=== PATIENT | female | born 1955 | race Caucasian/White ===

== ENCOUNTER 2017-10-29 10:30 | Inpatient (IN) | payer OTHER ==
[2017-10-29 12:05] LABS: #Eosinphils 0.1 thou/uL (0.0-0.7); #Lymphocytes 1.4 thou/uL (1.20-3.40); #Monocytes 0.6 thou/uL (0.11-0.59); #Neutrophils 9.7 thou/uL (1.40-6.50); %Basophils 0.2 % (0.0-1.0); %Eosinophils 1.1 % (0.0-10.0); %Lymphocytes 11.5 % (21.0-51.0); %Monocytes 5.3 % (0.0-10.0); %Neutrophils 81.8 % (42.0-75.0); Hemoglobin 11.4 g/dL (12.0-16.0); Mean Corpuscular HGB CONC 33.1 g/dL (32.0-36.0); Mean Corpuscular Hemoglobin 27.5 pg (27.0-31.0); Mean Corpuscular Volume 83.1 fL (78.0-98.0); Mean Platelet Volume 6.6 fL (7.4-10.4); Platelet Count 326 thou/uL (130-400); RBC Distribution Width 14.3 % (11.5-14.5); Red Blood Cell (RBC) Count 4.15 mill/uL (4.20-5.40); White Blood Cell (WBC) Count 11.9 thou/uL (4.8-10.8)
[2017-10-29 12:46] LABS: ALT (SGPT) 17 U/L (8-55); AST (SGOT) 12 U/L (5-34); Albumin 3.9 g/dL (3.4-4.8); Alkaline Phosphatase 93 U/L (40-150); Anion Gap 11 mmol/L (10-20); BUN (Urea Nitrogen) 27 mg/dL (9.8-20.1); Bilirubin, Total 0.6 mg/dL (0.2-1.2); Calc. Creatinine Clearance 0 mL/min (70-130); Calcium 9.4 mg/dL (7.8-10.44); Carbon Dioxide 26 mmol/L (23-31); Chloride 99 mmol/L (98-107); Estimated GFR-MDRD 32; Globulin 4.4 g/dL (2.4-3.5); Glucose 297 mg/dL (80-115); Potassium 4.2 mmol/L (3.5-5.1); Protein, Total 8.3 g/dL (6.0-8.3); Sodium 132 mmol/L (136-145)
--- NOTE | 2017-10-29 12:51 | RAD ---
LEFT FOOT THREE VIEWS: HISTORY: Left foot and toe pain and swelling. FINDINGS: Lisfranc joint alignment is anatomic. Pes planus on the lateral view. No acute fracture, dislocatio n, or aggressive osseous erosions. Mild joint space narrowing, osteophytosis, and subchondral sclero sis throughout the ankle, hindfoot, and midfoot. Demineralization of the mid and distal phalanges of the second toe with loss of the cortex of the dis konstantin phalanx. Atrophy of the overlying soft tissues with small pockets of gas. IMPRESSION: 1. Demineralization and cortical loss of the middle and distal phalanges of the second toe, consiste nt with an aggressive osseous process, such as osteomyelitis. Associated soft tissue swelling. 2. Mild degenerative changes of the mid foot and hind foot. POS: DORA
[2017-10-29] MEDS ORDERED: Sodium Chloride 0.65% Nasal 44 ML BOT EA NARE PRN (14:47)
[2017-10-29] MEDS ORDERED: Acetaminophen 325 MG TAB PO PRN (14:47)
[2017-10-29] MEDS ORDERED: Ondansetron ODT 4 MG TAB PO PRN (14:47)
[2017-10-29] MEDS ORDERED: Diabetic Tussin 200 MG/10 ML UDCUP PO PRN (14:47)
[2017-10-29] MEDS ORDERED: Senokot 8.6 MG TAB PO PRN (14:47)
[2017-10-29] MEDS ORDERED: Dextrose 5% in Water 1,000 ML IV PRN (14:47)
[2017-10-29] MEDS ORDERED: hydrALAZINE 20 MG/ML VIAL SLOW IVP PRN (14:47)
[2017-10-29] MEDS ORDERED: Eucerin (Mineral Oil/Petrolatum,White) 30 gm Jar TOP PRN (14:47)
[2017-10-29] MEDS ORDERED: Chloraseptic Spray 180 ml Bottle PO PRN (14:47)
[2017-10-29] MEDS ORDERED: Milk Of Magnesia 30 ML UDCUP PO PRN (14:47)
[2017-10-29] MEDS ORDERED: Nitroglycerin 0.4 MG TAB (25 Tab Bottle) SL PRN (14:47)
[2017-10-29] MEDS ORDERED: Loperamide HCl 2 MG CAP PO PRN (14:47)
[2017-10-29] MEDS ORDERED: Dextrose 50% Abboject 50 ML SYRINGE SLOW IVP PRN (14:47)
[2017-10-29] MEDS ORDERED: Mag-Al 1200 mg/1200 mg/30 ML UDCUP PO PRN (14:47)
[2017-10-29] MEDS ORDERED: Loratadine 10 MG TAB PO PRN (14:47)
[2017-10-29] MEDS ORDERED: Artificial Tear Sol 15 ML BOT EA EYE PRN (14:47)
[2017-10-29] MEDS ORDERED: Ondansetron HCl/PF 4 MG/2 ML Vial IVP PRN (14:47)
[2017-10-29] MEDS ORDERED: Zolpidem Tartrate 5 MG TAB PO PRN (14:47)
--- NOTE | 2017-10-29 15:13 | HP ---
PRIMARY CARE PHYSICIAN: Mikael Duvall M.D. REASON FOR ADMISSION: Left second toe gangrene and osteomyelitis of the toe. HISTORY OF PRESENT ILLNESS: A 62-year-old female who has underlying history of coronary artery disease, ischemic cardiomyopathy with AICD as well as diabetes, hypertension, and dyslipidemia who presented to emergency room with the discoloration of left 2nd toe. The patient reports that 6 days ago she hit her left foot on the side of the window. Since then, the patient was having pain in her left second toe. The patient noticed erythema, swelling, and tenderness. Amos days ago she fall off her toenail and afterward patient noticed that the tip of the second left toe was getting black which was progressing proximally. The patient also noticed erythema, tenderness spreading proximally on the dorsal aspect of the foot for last 2 days. The patient also noticed foul smelling from the toe. She denies any fever or chills. She denies any associated nausea or vomiting. She denies any claudication symptoms in her lower extremities. She denies any UTI symptoms. She denies any constipation, diarrhea, melena or hematochezia. She denies any orthopnea, PND or leg swelling. Today in the emergency room, patient had left foot x-ray which showed demineralization and cortical loss of the middle and distal phalanges of the second toe consistent with osteomyelitis and that is associated soft tissue swelling. In the emergency room, patient has received broad spectrum antibiotic therapy with vancomycin and Cipro. Subsequently, patient is being admitted to medical floor. Dr. Delgado was notified from the ER by ER physician. ALLERGIES: KEFLEX. CURRENT HOME MEDICATIONS: Lipitor 80 mg p.o. daily, Prinzide 20/25 one tablet twice daily, metformin 1000 mg twice daily, Coreg 25 mg 4 times daily, Lasix 20 mg twice daily, glyburide 10 mg twice daily, hydralazine 50 mg 4 times daily, Levemir insulin variable dose. PAST MEDICAL HISTORY: Coronary artery disease with history of stent, ischemic cardiomyopathy with ejection fraction 25-30% with AICD, chronic systolic heart failure, diabetes type 2, hypertension, dyslipidemia. REVIEW OF SYSTEMS: The following complete review of systems was negative, unless otherwise mentioned in the HPI or below: Constitutional: Weight loss or gain, ability to conduct usual activities. Skin: Rash, itching. Eyes: Double vision, pain. ENT/Mouth: Nose bleeding, neck stiffness, pain, tenderness. Cardiovascular: Palpitations, dyspnea on exertion, orthopnea. Respiratory: Shortness of breath, wheezing, cough, hemoptysis, fever or night sweats. Gastrointestinal: Poor appetite, abdominal pain, heartburn, nausea, vomiting, constipation, or diarrhea. Genitourinary: Urgency, frequency, dysuria, nocturia. Musculoskeletal: Pain, swelling. Neurologic/Psychiatric: Anxiety, depression. Allergy/Immunologic: Skin rash, bleeding tendency. Please see my HPI for pertinent positive and negative. All other review of systems reviewed and negative except as mentioned in the HPI. PAST SURGICAL HISTORY: Cardiac catheterization with stent placement, AICD placement. PAST PSYCHIATRIC HISTORY: Reviewed and negative. FAMILY HISTORY: No strong family history of premature coronary artery disease, stroke or cancer. SOCIAL HISTORY: Patient is and lives at home with her . No history of tobacco, alcohol or illicit drug abuse. EMERGENCY ROOM COURSE: Patient has received Cipro and vancomycin. PHYSICAL EXAMINATION: VITAL SIGNS: On arrival, blood pressure 145/67, pulse 77, respiratory rate 18, temperature 98.2, saturation 98% on room air, weight 104.3 kilograms. GENERAL: Patient is currently alert, awake, no obvious acute distress. HEENT: Normocephalic, atraumatic. Eyes: Pupils round, reactive to light. Extraocular muscle intact. ENT: Oropharynx within normal limits. Moist mucous membranes. No oral lesion , no pharyngeal erythema, no exudate. NECK: Supple, no JVD, no thyromegaly, no carotid bruit, no jugular venous distention. LUNGS: Clear to auscultation without any rhonchi or rales. CARDIAC: S1, S2 appears regular. No murmur elicited, no gallop, no rub. ABDOMEN: Obesity present. Bowel sounds present, nontender, nondistended. No organomegaly, no mass, no suprapubic tenderness. BACK: Unremarkable, no CVA tenderness. EXTREMITIES: Upper extremity passive movements of all joints are normal. Lower extremity, left second toe with black discoloration of proximal erythema extending to dorsal aspect of the foot, foul smelling feeble pulsation. Right foot is within normal limits. SKIN: No skin rash other than gangrenous toe on the left second toe. NEUROLOGIC: Nonfocal examination. The patient moves all 4 limbs. Plantar bilateral flexor. PSYCHIATRIC: Normal affect. HEMATOLOGIC: No lymphadenopathy. IMAGING DATA SIGNIFICANT LABORATORY DATA: 1. X-ray of foot showing demineralization and cortical loss of the middle and distal phalanges of the second toe on the left side consistent with aggressive osseous process such as osteomyelitis associated soft tissue swelling noted. Degenerative changes also noted. CBC: WBC 11.9, hemoglobin 11.4, platelet 326 with a left shift. BMP: Sodium 132, potassium 4.2, chloride 99, carbon dioxide 26, anion gap 11, BUN 27, creatinine 1.63, glucose 297, calcium 9.4. 2. LFT: AST 12, ALT 17, alkaline phosphatase 193, albumin 3.9. ASSESSMENT AND PLAN/IMPRESSION: 1. Acute osteomyelitis of second toe of the left foot with gangrene. Patient clinically appears to be dry gangrene suspected for vascular problem. Patient does have various risk factors for underlying vascular insufficiency including diabetes, hypertension, dyslipidemia, and coronary artery disease. The patient may need ischemic evaluation. We will obtain arterial Doppler ultrasound of left lower extremity to look for any vascular insufficiency. We are consulting Dr. Delgado for possible need of toe amputation after a vascular evaluation. This patient may need a CT angiography to look for peripheral arterial disease before surgery to see an appropriate circulation after amputation. II that case , the patient may need a vascular surgeon evaluation. We will notify Dr. Ronald Johns. Dr. Whitaker will be consulted as well to decide antibiotic therapy. We will check ESR and CRP. 2. Diabetes type 2. We will check hemoglobin A1c. We will continue insulin as per sliding scale per protocol. The patient's insulin will be continued while in hospital. Diabetic diet will be given. We will also continue glyburide 10 mg twice daily. 3. Dyslipidemia. Continue Lipitor 80 mg p.o. at bedtime. 4. Hypertension. Continue Prinzide 20/25 as per home dosage along with Coreg and hydralazine. 5. Ischemic cardiomyopathy with chronic systolic heart failure. Currently, patient is euvolemic. We will continue Prinzide, Coreg, hydralazine and Lasix as per home dosage. 6. Coronary artery disease. We will continue aspirin, statin therapy, beta juan diego therapy, and JAMI inhibitor as per home dosage. 7. Chronic kidney disease stage 3. We will monitor renal function and avoid nephrotoxin agents. 8. Deep venous thrombosis prophylaxis, heparin 5000 units subcu twice daily. 9. Gastrointestinal prophylaxis, Protonix 40 mg p.o. daily. CODE STATUS: The patient is FULL CODE. Patient's is surrogate decision maker. DISPOSITION PLAN: Based on clinical course, we are expecting patient's stay in hospital more than 2 midnights. During this admission, we will continue with antibiotic therapy with vancomycin and levofloxacin as per renally adjusted dose. Vancomycin dose will be adjusted by pharmacy. Plan of care discussed with the patient in detail. MTDD
[2017-10-29 15:14] VITALS: BMI 38.5
[2017-10-29] MEDS ORDERED: Vancomycin HCl 1 GM in Premix Bag 1 BAG IVPB SCH (15:45)
[2017-10-29] MEDS: HumaLOG 300 UNITS/3 ML VIAL SC PRN ×2 (17:19→21:12)
[2017-10-29 19:13] LABS: Bilirubin Negative (Negative); Blood, Urine Negative (Negative); Clarity CLOUDY (Clear); Glucose, Urine (Dipstick) Negative (Negative); Leukocyte Large (Negative); Nitrite Negative (Negative); Protein, Urine (Dipstick) 30 mg/dL (Neg-Trace); Specific Gravity, Urine 1.016 (1.002-1.036); Urobilinogen 0.2 mg/dL (0.2-1.0); pH, Urine 5.5 (5.0-9.0)
[2017-10-29 19:15] LABS: Bacteria/HPF 1+ HPF (None Seen); Hyaline Casts/LPF 4-6 HYALINE CAST LPF (0-3 Hyaline); Pathc Cast-AUWi Flag 0.43 (0-2.49)
[2017-10-29] MEDS: Heparin 5,000 UNITS/ML VIAL SC SCH (19:41)
--- NOTE | 2017-10-29 23:11 | CON ---
DATE OF ADMISSION: 10/29/2017 DATE OF CONSULTATION: 10/29/2017 REASON FOR CONSULTATION: Evaluate the patient with left second toe gangrene. HISTORY OF PRESENT ILLNESS: Ms. Johns has approximately 1 week history of left second toe gangrene. She presented to the emergency department today. She has no tobacco use history. She does have a c ardiac history and that she has had a myocardial infarction and has been seen by Dr. Sheridan since. She has low ejection fraction and has an ICD placed. She has never had any peripheral vascular prob lems. She has no history of claudication or rest pain. She has no history of tissue loss in the pas t. PAST MEDICAL HISTORY: 1. Coronary artery disease. 2. Depressed left ventricular ejection fraction. 3. Congestive heart failure. 4. Diabetes mellitus. 5. Hypertension. 6. Dyslipidemia. PAST SURGICAL HISTORY: 1. Cardiac catheterization and stenting. 2. AICD. SOCIAL HISTORY: She does not use tobacco or alcohol. She is and lives at home. REVIEW OF SYSTEMS: Ten-point review of systems performed and is negative except as above. PHYSICAL EXAMINATION: GENERAL: This is an obese woman resting comfortably in bed. VITAL SIGNS: Her height is 5 feet 10 inches, weight 268 pounds, BSA is 2.45. BMI is 38. Temperatur e is 98.1, pulse is 78 and regular, blood pressure is 148/82. HEENT: Sclerae nonicteric. NECK: Supple, without adenopathy. There is no carotid bruit. CHEST: Clear bilaterally. HEART: Rhythm is regular without murmur. ABDOMEN: Soft and nontender. EXTREMITIES: She has gangrene dry at tip of the second toe. There is some erythema of the second to e that extends down onto the forefoot, other toes appeared normal. VASCULAR: She has palpable femoral pulses bilaterally. On the right, she has a palpable dorsalis pe dis pulse on the left. I think I can feel her posterior tibial pulse and it does have a biphasic Dop pler signal in it. She has had formal arterial Doppler examination performed which shows on the righ t good waveforms throughout and an ankle brachial index of 1.05 on the left. There is a slight decre ase in the popliteal artery waveform, posterior tibial artery waveform is biphasic. The ankle brachi al index is 0.61. ASSESSMENT AND PLAN: Peripheral vascular disease in the setting of gangrene of the second toe. She does have a Doppler signal in her left posterior tibial artery and also in the digital artery supplyi ng her second toe. She needs amputation of the toe. If the toe bed does not bleed, we can certainly plan angiograms intervention, although I feel like she should heal based on her exam currently.
--- NOTE | 2017-10-30 01:51 | CON ---
DATE OF CONSULTATION: 10/29/2017 REASON FOR CONSULTATION: Osteomyelitis of the left second toe. HISTORY: Ms. Johns is a 62-year-old woman with multiple medical problems, who presented to the [facility] with a several day history of discoloration of her left second toe after hitting it on a door jam . She states that the color has gotten darker and the toe has gotten more swollen over the past few days, so she decided to come into the emergency room. On x-ray, there was loss of cortical bone of t he distal and middle phalanx bones consistent with osteomyelitis and also some soft tissue swelling n oted. She denies any drainage from the toe and she denies rest pain and claudication. PAST MEDICAL HISTORY: Diabetes, coronary artery disease status post stent placements, heart failure with AICD placement, diabetes, hypertension, hyperlipidemia. OUTPATIENT MEDICATIONS: Include Lipitor, Prinzide, metformin, Coreg, Lasix, glyburide, hydralazine, and Levemir insulin. ALLERGIES: She reports an allergy to KEFLEX. INPATIENT MEDICATIONS: Include sliding scale insulin, subcutaneous heparin, levofloxacin, Florastor, vancomycin, and multiple p.r.n.'s. FAMILY HISTORY: Noncontributory. PHYSICAL EXAMINATION: VITAL SIGNS: Patient is afebrile, heart rate 64, respirations 16, 93% saturated on room air, blood p ressure 138/77. GENERAL: Reveals a healthy appearing woman who appears older than her stated age. HEENT: Unremarkable. NECK: Supple without lymphadenopathy or thyroid nodules. HEART: Regular in its rate and rhythm without murmurs, rubs, or gallops. LUNGS: Clear to auscultation bilaterally. ABDOMEN: Soft, nontender, nondistended with a large umbilical hernia, which is not reducible, but is nontender and has been present for 20 years by the patient's history that appears to contain fat onl y. EXTREMITIES: Somewhat pale with delayed cap refill on the left greater than the right. I can apprec iate a dorsalis pedis pulse on the right as well as a popliteal but cannot feel any pedal or poplitea l pulses on the left. Her left second toe is gangrenous over about half of the total length. There is erythema and swelling of the proximal toe and the erythema extends up onto the mid foot. There is also some pitting edema of the foot associated with this. There is no crepitance and no expressible drainage, although the skin between the toes is somewhat macerated. Light touch sensation is somewh at diminished. Patient is alert, oriented, and appropriate and given an appropriate history. LABORATORY DATA AND X-RAY FINDINGS: White count 11.9, hematocrit 34.5, platelets 326. Electrolytes are unremarkable. BUN and creatinine are 27 and 1.63. Blood sugars have been in the 240s to 290s. LFTs are normal. UA is positive for leukocyte esterase and protein as well as too numerous to count white cells, 1+ bacteria, and 4-6 hyaline casts. Foot films are reviewed and I agreed with written r eport. ASSESSMENT: Gangrene of the left second toe due to peripheral vascular disease and minor trauma. I am concerned that there could be some infections since there appears to be erythema extending onto th e mid foot, but there is no expressible drainage from the toe, so I do not think this is classic wet gangrene. I was not sure whether she would be able to heal and amputation, so I did ask Dr. Johns of vascular surgery to evaluate her and he feels that she has adequate blood flow to heal an amputation at the toe level. If the tissues do not appear healthy or healing does not appear to be taking plac e, then he will perform an angiogram next week to see if any intervention is possible or appropriate. ASSESSMENT: Gangrene of left second toe with concern for indolent infection. PLAN: I have recommended amputation. Dr. Johns of vascular surgery feels that she has adequate bloo d supply to heal this and I have placed her on the OR scheduled for tomorrow. The patient is in agre ement with the plan and understands and accepts the risks of surgery, which include bleeding, infecti on, risks of anesthesia, failure to heal, and need for further procedures. She understands that if s he does not heal a toe amputation and amputation at a higher level up to including losing the entire foot is possible. She may benefit from hyperbaric treatment, although given her heart failure, I am not sure she is a candidate. I will ask the [facility] to evaluate her for this.
[2017-10-30 04:43] LABS: #Eosinphils 0.3 thou/uL (0.0-0.7); #Lymphocytes 1.9 thou/uL (1.20-3.40); #Monocytes 0.8 thou/uL (0.11-0.59); #Neutrophils 6.6 thou/uL (1.40-6.50); %Basophils 0.3 % (0.0-1.0); %Eosinophils 2.9 % (0.0-10.0); %Neutrophils 68.8 % (42.0-75.0); Hemoglobin 10.3 g/dL (12.0-16.0); Mean Corpuscular HGB CONC 33.6 g/dL (32.0-36.0); Mean Corpuscular Hemoglobin 27.7 pg (27.0-31.0); Mean Corpuscular Volume 82.3 fL (78.0-98.0); Mean Platelet Volume 6.4 fL (7.4-10.4); Platelet Count 307 thou/uL (130-400); RBC Distribution Width 14.1 % (11.5-14.5); Red Blood Cell (RBC) Count 3.72 mill/uL (4.20-5.40); White Blood Cell (WBC) Count 9.6 thou/uL (4.8-10.8)
[2017-10-30 05:04] LABS: ALT (SGPT) 16 U/L (8-55); AST (SGOT) 13 U/L (5-34); Albumin 3.3 g/dL (3.4-4.8); Alkaline Phosphatase 87 U/L (40-150); Anion Gap 10 mmol/L (10-20); BUN (Urea Nitrogen) 28 mg/dL (9.8-20.1); Bilirubin, Total 0.6 mg/dL (0.2-1.2); Calc. Creatinine Clearance 71 mL/min (70-130); Calcium 8.9 mg/dL (7.8-10.44); Carbon Dioxide 29 mmol/L (23-31); Chloride 100 mmol/L (98-107); Estimated GFR-MDRD 33; Globulin 3.7 g/dL (2.4-3.5); Glucose 218 mg/dL (80-115); Potassium 4.1 mmol/L (3.5-5.1); Sodium 135 mmol/L (136-145)
[2017-10-30] MEDS ORDERED: Fentanyl 100 MCG/2 ML VIAL ONE (09:50)
[2017-10-30] MEDS ORDERED: Bacitracin Zinc Ointment 30 gm TUBE ONE (10:09)
[2017-10-30] MEDS ORDERED: Bupivacaine/Epinephrine 0.25% 30 ML VIAL ONE (10:09)
[2017-10-30] MEDS ORDERED: Promethazine HCl 25 MG/ML VIAL SLOW IVP PRN (10:30)
[2017-10-30] MEDS ORDERED: HYDROmorphone 2 MG/ML VIAL SLOW IVP PRN (10:30)
[2017-10-30] MEDS ORDERED: Promethazine HCl 25 MG/ML VIAL IM PRN (10:30)
[2017-10-30] MEDS ORDERED: Meperidine HCl/PF 25 MG/ML VIAL SLOW IVP PRN (10:30)
[2017-10-30] MEDS: Heparin 5,000 UNITS/ML VIAL SC SCH ×2 (12:20→20:05)
[2017-10-30] MEDS: Saccharomyces boulardii 250 MG CAP PO SCH (12:20)
[2017-10-30] MEDS: HumaLOG 300 UNITS/3 ML VIAL SC PRN ×3 (12:21→20:10)
--- NOTE | 2017-10-30 12:25 | PQF ---
KALI BULLOCK DAVID R MD [id number] CLINICAL DOCUMENTATION IMPROVEMENT CLARIFICATION FORM: ICD-10 Updated PLEASE DO AN ADDENDUM TO THE PROGRESS NOTE WITH ANY DOCUMENTATION UPDATES OR ADDITIONS AND CARRY THROUGH TO DC SUMMARY. THANK YOU. DATE: 10-30-17 ATTN: DR. ENRIQUEZ / DR. CASTLE Please exercise your independent, professional judgment in responding to the clarification form. Clinical indicators are provided on the bottom of this form for your review Please check appropriate box(s): [ ] UTI UTI Site: [ ] Kidney [ ] Ureter [ ] Bladder [ ] Urethra [ ] Unable to determine Specify Organism (if known): [ ] Unknown organism [ x ] Contaminated urine specimen without UTI culture negative [ ] Other diagnosis [ ] Unable to determine In addition, please specify: Present on Admission (POA): [ ] Yes [ x ] No [ ] Unable to determine For continuity of documentation, please document condition throughout progress notes and discharge summary. Thank You. CLINICAL INDICATORS - SIGNS / SYMPTOMS / LABS 8-16 UA - LARGE LEUKOCYTES WBC - GREATER THAN 50 1+ BACTERIA 4-6 HYALINE CASTS 8-16 H&P ([facility]): DENIES UTI SYMPTOMS RISK FACTORS 8-16 H&P ([facility]): DM TYPE 2 TREATMENT: 8-16 ED: CIPRO IV; VANCOMYCIN IV; MAR: 8-16 LEVAQUIN IV THANK YOU, PALOMA 2015 [employer]. All Rights Reserved Paloma Baum RN, BS [email or web address] This form is maintained as a part of the permanent medical record) [facility]
[2017-10-30] MEDS: cefTRIAXone\\ROCEPHIN 1 GM in Sodium Chloride 0.9% 100 ML IVPB SCH (14:38)
--- NOTE | 2017-10-30 14:41 | CON ---
DATE OF CONSULTATION: 10/30/2017 REASON FOR CONSULTATION: Left foot osteomyelitis. HISTORY OF PRESENT ILLNESS: This is a 62-year-old with history of ischemic cardiomyopathy with AICD in place, type 2 diabetes and hypertension who developed discoloration of the left second toe associa howard with inflammatory changes with erythema that is spreading towards the dorsal aspect of the left m id foot region. Initial findings included blood pressure 145/67, pulse 77, respiratory rate 18, temp erature 98.2. The exam showed left second toe with evidence of gangrene with extension of the inflam matory changes towards the mid aspect of the left foot. She had an arterial ultrasound. That interp retation is pending. Dr. Johns cleared her for surgical intervention. Dr. Delgado has performed amp utation. 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 The patient is feeling otherwise okay. She denies any headaches, visual symptoms other th an the usual diabetes related symptoms. No neck pain, no dyspnea, no chest pain, no abdominal pain, no diarrhea, no genitourinary symptoms. No joint symptoms. PAST MEDICAL HISTORY: Ischemic cardiomyopathy, diabetes, hypertension, peripheral vascular disease. ALLERGIES: KEFLEX with rash. CURRENT MEDICATIONS: Tylenol, [place], Maalox, glucagon, Robitussin, Apresoline, insulin, levofloxacin , loperamide, Claritin, Nitrostat, Zofran, vancomycin. FAMILY HISTORY: Noncontributory. SOCIAL HISTORY: Never a smoker. . Lives at home in the area. PHYSICAL EXAMINATION: VITAL SIGNS: T-max 98.7, blood pressure 160/70, pulse 62, respirations 16, O2 sat 95%. SKIN: Shows the gangrene of the second toe, left foot. There is an area of erythema in the dorsal a spect of the mid foot region, measuring about 6 cm in width x 5 cm in extension. Peripheral IV acces s. No Bella catheter. No lymphadenopathy. HEENT: Ocular movements are conjugate. Sclerae white. Pupils are equal. Oral cavity normal. Teet h in good shape. NECK: Supple. No jugular vein distention. LUNGS: With symmetric clear breath sounds. HEART: S1, S2, regular rate. No S3, S4. ABDOMEN: Soft, not distended or tender. No ascites. No bladder distention. EXTREMITIES: No joint inflammatory activity outside the involved area. Pulses are diminished in augustin salis pedis, left side. The right side are 1+. Popliteals are faintly palpable in the left side and 1+ in the right side. NEUROLOGIC: Cognitive function appears to be intact. The strength in the extremities appears to be symmetric. LABORATORY DATA: White cell count 11.9 and 9.6, hemoglobin 11.4, platelets 326,000, 81% neutrophils. Sodium 135, creatinine is at 1.61, which is about the same as admission. Liver profile normal. CR P 3.99, albumin 3.3. Urinalysis with greater than 50 WBCs. We have 2 samples for cultures from the toe. A few gram-positive cocci in pairs noted in the first sample. The second sample and the Gram s tain with no organisms seen. All the cultures are pending. Blood culture, no growth thus far. ASSESSMENT AND PLAN: Type 2 diabetes with ischemic cardiomyopathy and AICD in place with gangrene, s econd toe left foot and extension of the cellulitis proximally. The patient has had amputation. I es ford not yet had the chance of reviewing the operative report, but depending on the margin of clearanc e as well as the culture results, the patient may be eligible for transition to oral antimicrobial th erapy subsequently for discharge planning. In the meantime, continue broad spectrum coverage with th e current regimen. We will transition her to Rocephin and Flagyl until we have final culture results .
[2017-10-30] MEDS ORDERED: PHENYLEPHRINE-NS 100 MCG/ML 10 ML SYRINGE ONE (15:09)
[2017-10-30] MEDS ORDERED: PROPOFOL 200 MG/20 ML VIAL ONE (15:09)
[2017-10-30] MEDS ORDERED: Lidocaine 1% PF 5 ML VIAL ONE (15:09)
[2017-10-30] MEDS: metroNIDAZOLE 250 MG TAB PO SCH ×2 (16:00→20:05)
--- NOTE | 2017-10-30 22:46 | PDOC.PN ---
- Subjective Encounter Start Date: 10/30/17 Encounter Start Time: 15:15 Doing well post op. No pain. - Objective Resuscitation Status: Resuscitation Status FULL:Full Resuscitation Vital Signs & Weight: Vital Signs (12 hours) Temp Pulse Resp BP Pulse Ox 10/30/17 20:00 98.6 F 67 12 144/72 H 94 L 10/30/17 16:00 98.3 F 66 16 155/83 H 92 L 10/30/17 12:00 140/82 10/30/17 11:15 98.1 F 62 16 165/75 H 95 Weight Admit Weight 268 lb 8 oz Weight 268 lb 8 oz I&O: 10/29/17 10/30/17 10/31/17 06:59 06:59 06:59 Intake Total 1450 Balance 1450 Result Diagrams: 10/30/17 03:51 10/30/17 03:51 Additional Labs: Accuchecks 10/30/17 10/30/17 10/30/17 20:09 16:49 11:35 POC Glucose 267 H 289 H 284 H 10/30/17 04:35 POC Glucose 197 H Phys Exam - Physical Examination Constitutional: NAD HEENT: PERRLA Respiratory: no wheezing, no rales, no rhonchi Cardiovascular: RRR, no significant murmur Gastrointestinal: soft, non-tender, no distention Musculoskeletal: no edema Left foot dressed. Dx/Plan (1) Osteomyelitis Code(s): M86.9 - OSTEOMYELITIS, UNSPECIFIED Status: Acute Comment: S/P amputation. Some proximal progression of abscess with debridement of the head of the metatarsal bone. Continue with Abx. Cx growing Staph. Await sensitivities. (2) Diabetes Code(s): E11.9 - TYPE 2 DIABETES MELLITUS WITHOUT COMPLICATIONS Status: Acute Qualifiers: Chronic kidney disease stage: stage 3 (moderate) Comment: Poorly controlled. Will resume her home regimen of long-acting insulin. (3) Hypertension Code(s): I10 - ESSENTIAL (PRIMARY) HYPERTENSION Status: Acute Comment: Stable. Home Zestril. (4) CKD (chronic kidney disease) Code(s): N18.9 - CHRONIC KIDNEY DISEASE, UNSPECIFIED Status: Acute Qualifiers: Chronic kidney disease stage: stage 3 (moderate) Qualified Code(s): N18.3 - Chronic kidney disease, stage 3 (moderate) (5) CAD (coronary artery disease) Code(s): I25.10 - ATHSCL HEART DISEASE OF [place] CORONARY ARTERY W/O ANG PCTRS Status: Acute - Plan * Continue post op care. Accuchecks and DM control.
--- NOTE | 2017-10-31 00:41 | PDOC.OP ---
Operative Note - Operative Note Operative Note: PROCEDURE: Left second toe ray amputation DATE OF PROCEDURE: 10/30/2017 SURGEON: Edgar Delgado M.D. PREOPERATIVE DIAGNOSES: Gangrene of the left second toe with diabetic foot infection POSTOPERATIVE DIAGNOSIS: Gangrene of the left second toe with diabetic foot infection HISTORY: Patient with discoloration and swelling of the left second toe after minor injury. She has obvious gangrene of the distal left second toe and cortical changes consistent with osteomyelitis of the mid and distal phalanges. She also has swelling and erythema extending onto the dorsum of the foot concerning for underlying infection although there is no expressible drainage from the toe. Dr. Johns of vascular surgery feels that she has adequate circulation to heal a toe amputation so recommendation was made to proceed to the operating room for this. PROCEDURE IN DETAIL: After informed consent was obtained and appropriate preoperative antibiotics continued the patient was taken to the operating room she was placed in supine position and anesthesia was administered. She was prepped and draped in a standard sterile fashion and local anesthesia infused for digital block of the left second toe. A paddle-shaped incision was made and dissection carried down to the proximal phalanx which was transected. There was a small amount of purulent fluid located along the medial aspect of the toe at the level of transection and this was sent for Gram stain and culture. The soft tissues were debrided back to healthy-appearing tissues and no other areas of abscess were encountered. The bone at the transection level appeared to be spongy and osteomyelitic so the base of the proximal phalanx was resected and the head of the second metatarsal debrided back with rongeurs. The second metatarsal bone was normal in consistency and bone chips were sent for culture. Bovie electrocautery was used as needed throughout the case to maintain hemostasis, but there was not much bleeding from the tissues. These appeared viable but somewhat pale. The wound was irrigated and hemostasis verified. A wet-to-dry dressing was placed and secured with Kerlix and the patient was taken to the recovery room in good condition. Estimated blood loss is minimal. There were no complications. Specimen is left second toe with abscess for Gram stain and culture and bone chips from the second metatarsal head for bone culture.
[2017-10-31] MEDS: HumaLOG 300 UNITS/3 ML VIAL SC PRN ×3 (04:00→18:05)
[2017-10-31] MEDS: Saccharomyces boulardii 250 MG CAP PO SCH (09:25)
[2017-10-31] MEDS: metroNIDAZOLE 250 MG TAB PO SCH ×3 (09:25→20:22)
[2017-10-31] MEDS: Heparin 5,000 UNITS/ML VIAL SC SCH ×2 (09:26→20:24)
[2017-10-31 12:32] LABS: Vancomycin, Trough 14.5 ug/mL
[2017-10-31] MEDS: hydrALAZINE 25 MG TAB PO SCH ×2 (14:48→20:23)
--- NOTE | 2017-10-31 14:58 | PDOC.PN ---
- Subjective Encounter Start Date: 10/31/17 Encounter Start Time: 12:45 Doing well. No pain. - Objective Resuscitation Status: Resuscitation Status FULL:Full Resuscitation Vital Signs & Weight: Vital Signs (12 hours) Temp Pulse Resp BP BP Pulse Ox 10/31/17 14:48 70 135/77 10/31/17 14:46 98.0 F 70 16 135/77 96 10/31/17 08:00 96 10/31/17 07:58 98.3 F 70 16 96 10/31/17 07:57 98.3 F 70 16 127/70 93 L 10/31/17 04:00 99.3 F 70 14 123/68 Weight Admit Weight 268 lb 8 oz Weight 268 lb 8 oz I&O: 10/30/17 10/31/17 11/01/17 06:59 06:59 06:59 Intake Total 1450 Balance 1450 Result Diagrams: 10/30/17 03:51 10/30/17 03:51 Additional Labs: Accuchecks 10/31/17 10/31/17 10/30/17 11:36 03:47 20:09 POC Glucose 374 H 255 H 267 H 10/30/17 16:49 POC Glucose 289 H Phys Exam - Physical Examination Constitutional: NAD Respiratory: no wheezing, no rales, no rhonchi, clear to auscultation bilateral Cardiovascular: RRR, no significant murmur, no rub Gastrointestinal: soft, non-tender, no distention, positive bowel sounds Musculoskeletal: no edema Left foot with post-op dressing. Psychiatric: normal affect Dx/Plan (1) Osteomyelitis Code(s): M86.9 - OSTEOMYELITIS, UNSPECIFIED Status: Acute Comment: S/P amputation. Some proximal progression of abscess with debridement of the head of the metatarsal bone. Continue with Abx. Cx growing Staph. Await sensitivities. (2) Diabetes Code(s): E11.9 - TYPE 2 DIABETES MELLITUS WITHOUT COMPLICATIONS Status: Acute Qualifiers: Chronic kidney disease stage: stage 3 (moderate) Comment: Poorly controlled. Will resume her home regimen of long-acting insulin. (3) Hypertension Code(s): I10 - ESSENTIAL (PRIMARY) HYPERTENSION Status: Acute Comment: Stable. Home Zestril. (4) CKD (chronic kidney disease) Code(s): N18.9 - CHRONIC KIDNEY DISEASE, UNSPECIFIED Status: Acute Qualifiers: Chronic kidney disease stage: stage 3 (moderate) Qualified Code(s): N18.3 - Chronic kidney disease, stage 3 (moderate) (5) CAD (coronary artery disease) Code(s): I25.10 - ATHSCL HEART DISEASE OF [place] CORONARY ARTERY W/O ANG PCTRS Status: Acute - Plan * Tailor abx when cultures mature.
[2017-10-31] MEDS: cefTRIAXone\\ROCEPHIN 1 GM in Sodium Chloride 0.9% 100 ML IVPB SCH (16:40)
[2017-10-31] MEDS: Lisinopril 20 MG TAB PO SCH (20:21)
[2017-10-31] MEDS: Atorvastatin Calcium 40 MG TAB PO SCH (20:23)
[2017-10-31] MEDS: Furosemide 20 MG TAB PO SCH (20:24)
[2017-10-31] MEDS: NPH, Human Insulin Isophane 300 UNIT/3 ML VIAL SC SCH (20:25)
[2017-10-31] MEDS ORDERED: Non-Formulary Item 1 EACH (Lisinopril [Lisinopril] 40 MG) PO SCH (21:00)
--- NOTE | 2017-10-31 23:08 | PDOC.GSPN ---
Surgery Progress Note: Subj - Subjective Narrative: Amputation site clean, erythema a little better. Not hurting much. Continue wound care and abx. Surgery Progress Note: Obj - Vital signs Vital signs: Vital Signs - Most Recent Temp Pulse Resp BP Pulse Ox 98 F 74 18 152/84 H 92 L 10/31/17 20:00 10/31/17 20:00 10/31/17 20:00 10/31/17 20:23 10/31/17 20:00 Surgery Progress Note: Results - Labs Result Diagrams: 10/30/17 03:51 10/30/17 03:51 Lab results: Laboratory Results - last 24 hr 10/31/17 10/31/17 10/31/17 11:36 12:00 17:04 POC Glucose 374 H 289 H Vancomycin Trough 14.5 10/31/17 19:38 POC Glucose 386 H Vancomycin Trough
[2017-11-01 04:53] LABS: #Eosinphils 0.6 thou/uL (0.0-0.7); #Lymphocytes 2.2 thou/uL (1.20-3.40); #Monocytes 0.7 thou/uL (0.11-0.59); #Neutrophils 4.4 thou/uL (1.40-6.50); %Eosinophils 7.9 % (0.0-10.0); %Lymphocytes 28.5 % (21.0-51.0); %Monocytes 8.3 % (0.0-10.0); %Neutrophils 55.3 % (42.0-75.0); Hemoglobin 9.9 g/dL (12.0-16.0); Mean Corpuscular HGB CONC 32.9 g/dL (32.0-36.0); Mean Corpuscular Hemoglobin 27.3 pg (27.0-31.0); Mean Platelet Volume 6.4 fL (7.4-10.4); Platelet Count 291 thou/uL (130-400); RBC Distribution Width 14.2 % (11.5-14.5); Red Blood Cell (RBC) Count 3.63 mill/uL (4.20-5.40); White Blood Cell (WBC) Count 7.9 thou/uL (4.8-10.8)
[2017-11-01 05:17] LABS: Anion Gap 13 mmol/L (10-20); BUN (Urea Nitrogen) 35 mg/dL (9.8-20.1); Calc. Creatinine Clearance 87 mL/min (70-130); Calcium 9.2 mg/dL (7.8-10.44); Carbon Dioxide 28 mmol/L (23-31); Chloride 100 mmol/L (98-107); Estimated GFR-MDRD 41; Glucose 241 mg/dL (80-115); Potassium 4.2 mmol/L (3.5-5.1); Sodium 137 mmol/L (136-145)
[2017-11-01] MEDS ORDERED: Non-Formulary Item 1 EACH (Atorvastatin Calcium [Atorvastatin Calcium] 80 MG) PO SCH (09:00)
[2017-11-01] MEDS: Ezetimibe 10 MG TAB PO SCH (09:04)
[2017-11-01] MEDS: Amlodipine 5 MG TAB PO SCH (09:04)
[2017-11-01] MEDS: Saccharomyces boulardii 250 MG CAP PO SCH (09:04)
[2017-11-01] MEDS: Lisinopril 20 MG TAB PO SCH ×2 (09:04→20:50)
[2017-11-01] MEDS: Heparin 5,000 UNITS/ML VIAL SC SCH ×2 (09:05→20:52)
[2017-11-01] MEDS: metroNIDAZOLE 250 MG TAB PO SCH ×3 (09:06→20:50)
[2017-11-01] MEDS: hydrALAZINE 25 MG TAB PO SCH ×3 (09:06→20:51)
[2017-11-01] MEDS: Furosemide 20 MG TAB PO SCH ×2 (09:07→20:51)
[2017-11-01] MEDS: NPH, Human Insulin Isophane 300 UNIT/3 ML VIAL SC SCH ×2 (09:48→20:54)
[2017-11-01] MEDS: HYDROcodone/Acetaminophen 5/325 mg Tablet PO PRN (11:51)
[2017-11-01] MEDS: HumaLOG 300 UNITS/3 ML VIAL SC PRN (12:58)
--- NOTE | 2017-11-01 13:09 | PDOC.PN ---
- Subjective Encounter Start Date: 11/01/17 Encounter Start Time: 11:20 Doing well. No sidhu to get home. Would like some pain meds prior to the dressing changes. - Objective Resuscitation Status: Resuscitation Status FULL:Full Resuscitation Vital Signs & Weight: Vital Signs (12 hours) Temp Pulse Resp BP BP Pulse Ox 11/01/17 11:49 98.4 F 69 18 142/79 H 94 L 11/01/17 09:06 68 154/83 H 11/01/17 09:04 68 154/83 H 11/01/17 08:00 97.9 F 68 18 93 L 11/01/17 07:29 97.9 F 68 18 154/83 H 93 L Weight Admit Weight 268 lb 8 oz Weight 268 lb 8 oz I&O: 10/31/17 11/01/17 11/02/17 06:59 06:59 06:59 Intake Total 1450 2420 Balance 1450 2420 Result Diagrams: 11/01/17 03:46 11/01/17 03:46 Additional Labs: Accuchecks 11/01/17 11/01/17 10/31/17 11:48 05:49 19:38 POC Glucose 292 H 228 H 386 H 10/31/17 17:04 POC Glucose 289 H Phys Exam - Physical Examination Constitutional: NAD Respiratory: no wheezing, no rales, no rhonchi, clear to auscultation bilateral Cardiovascular: RRR, no significant murmur Gastrointestinal: soft, non-tender, no distention, positive bowel sounds Musculoskeletal: no edema Left foot dressed. No erythema of the leg and good cap refill toes Dx/Plan (1) Osteomyelitis Code(s): M86.9 - OSTEOMYELITIS, UNSPECIFIED Status: Acute Comment: S/P amputation. Some proximal progression of abscess with debridement of the head of the metatarsal bone. Continue with Abx. Cx growing Staph. Await sensitivities. (2) Diabetes Code(s): E11.9 - TYPE 2 DIABETES MELLITUS WITHOUT COMPLICATIONS Status: Acute Qualifiers: Chronic kidney disease stage: stage 3 (moderate) Comment: Poorly controlled. Resumed her home regimen of long-acting insulin. Still high. Will increase the SSI. (3) Hypertension Code(s): I10 - ESSENTIAL (PRIMARY) HYPERTENSION Status: Acute Comment: Stable. Home Zestril. (4) CKD (chronic kidney disease) Code(s): N18.9 - CHRONIC KIDNEY DISEASE, UNSPECIFIED Status: Acute Qualifiers: Chronic kidney disease stage: stage 3 (moderate) Qualified Code(s): N18.3 - Chronic kidney disease, stage 3 (moderate) Comment: Stable. Creatinine a little better today. (5) CAD (coronary artery disease) Code(s): I25.10 - ATHSCL HEART DISEASE OF [place] CORONARY ARTERY W/O ANG PCTRS Status: Acute - Plan * Continue abx until sensitivities known and possible oral option found.
--- NOTE | 2017-11-01 17:49 | PRG ---
DATE OF SERVICE: 11/01/2017 SUBJECTIVE: Ms. Johns had the amputation by Dr. Delgado. We have reviewed the operative note and there was obvious gangrene of the left second toe, erythema extending, pedal shaped incision made and dissection carried down to the proximal phalanx, which was transected. There is a small amount of purulent fluid along the medial aspect of the toe. This was sent for cultures. Soft tissues debrided back to healthy appearing tissues, bone at section level appeared spongy, so the base of the proximal phalanx was resected and the head of the second metatarsal debrided back with rongeurs. The second metatarsal bone appeared normal in consistency. Bone chips sent for cultures. Currently, she is okay. OBJECTIVE: VITAL SIGNS: Normal. She is afebrile. LUNGS: Clear. HEART: S1, S2 with regular rate. ABDOMEN: Soft. EXTREMITIES: The foot dressing not removed. LABORATORY DATA: White cell count down to 7.9, hemoglobin 9.9, creatinine 1.31 , which is improved from admission. Microbiology with Staph aureus from the toe. The bone includes a coagulase negative Staph as well. This is in rare amounts and could represent a contamination of the specimen. The staph aureus is more likely to be the culprit here. We are still waiting on susceptibilities. ASSESSMENT AND DISCUSSION: Type 2 diabetes, ischemic cardiomyopathy with automatic implantable cardioverter defibrillator in place, gangrene in second toe left foot, status post surgical debridement. We will wait for the margin of amputation and wait for susceptibilities of the Staph aureus and our plan is to transition to oral antimicrobials according to susceptibilities for the duration to be determined by the pathology from the specimen. She does have some element of peripheral vascular disease and probably we would extend the treatment for at least 2-3 or even 4 weeks depending on the progress of the wound. Those patients have a higher risk of recrudescence of the infection and the remainder of the amputation site. MELINDA
[2017-11-01] MEDS ORDERED: cefTRIAXone\\ROCEPHIN 1 GM in Sodium Chloride 0.9% 100 ML IVPB SCH (18:00)
--- NOTE | 2017-11-01 18:17 | PDOC.GSPN ---
Surgery Progress Note: Subj - Subjective Narrative: Patient is feeling fine. She had some pain with the dressing change but is otherwise doing well. The wounds looked good when I saw her with wound care and appears to be granulating appropriately. The erythema has almost resolved. No expressible drainage. Cultures are growing staph. I will continue to see her with the wound care team. At this point it doesn't appear that revascularization will be necessary. Surgery Progress Note: Obj - Vital signs Vital signs: Vital Signs - Most Recent Temp Pulse Resp BP Pulse Ox 97.9 F 69 16 162/81 H 95 11/01/17 17:09 11/01/17 17:09 11/01/17 17:09 11/01/17 17:09 11/01/17 17:09 Surgery Progress Note: Results - Labs Result Diagrams: 11/01/17 03:46 11/01/17 03:46 Lab results: Laboratory Results - last 24 hr 11/01/17 11/01/17 11:48 17:08 POC Glucose 292 H 177 H
[2017-11-01] MEDS: Atorvastatin Calcium 40 MG TAB PO SCH (20:51)
[2017-11-02] MEDS: Lisinopril 20 MG TAB PO SCH ×2 (08:03→20:03)
[2017-11-02] MEDS: Saccharomyces boulardii 250 MG CAP PO SCH (08:03)
[2017-11-02] MEDS: hydrALAZINE 25 MG TAB PO SCH ×3 (08:03→20:04)
[2017-11-02] MEDS: NPH, Human Insulin Isophane 300 UNIT/3 ML VIAL SC SCH ×2 (08:04→20:05)
[2017-11-02] MEDS: metroNIDAZOLE 250 MG TAB PO SCH ×3 (08:04→20:04)
[2017-11-02] MEDS: Heparin 5,000 UNITS/ML VIAL SC SCH ×2 (08:04→20:04)
[2017-11-02] MEDS: Ezetimibe 10 MG TAB PO SCH (08:04)
[2017-11-02] MEDS: Amlodipine 5 MG TAB PO SCH (08:04)
[2017-11-02] MEDS: Furosemide 20 MG TAB PO SCH ×2 (08:04→20:04)
[2017-11-02] MEDS: HumaLOG 300 UNITS/3 ML VIAL SC PRN ×2 (11:46→17:23)
[2017-11-02 12:21] LABS: Vancomycin, Trough 20.4 ug/mL
--- NOTE | 2017-11-02 15:31 | PDOC.PN ---
- Subjective Encounter Start Date: 11/02/17 Encounter Start Time: 15:29 Subjective: no fever,chills,etc - Objective Resuscitation Status: Resuscitation Status FULL:Full Resuscitation MAR Reviewed: Yes Vital Signs & Weight: Vital Signs (12 hours) Temp Pulse Resp BP BP Pulse Ox 11/02/17 13:58 72 153/73 H 11/02/17 08:00 98.3 F 68 16 11/02/17 07:50 98.3 F 68 16 144/83 H 93 L Weight Admit Weight 268 lb 8 oz Weight 268 lb 8 oz I&O: 11/01/17 11/02/17 11/03/17 06:59 06:59 06:59 Intake Total 2420 1700 Balance 2420 1700 Result Diagrams: 11/01/17 03:46 11/01/17 03:46 Additional Labs: Accuchecks 11/02/17 11/02/17 11/01/17 11:18 05:43 19:45 POC Glucose 244 H 147 H 165 H 11/01/17 17:08 POC Glucose 177 H Phys Exam - Physical Examination Neck: no JVD Respiratory: clear to auscultation bilateral Cardiovascular: RRR, no significant murmur Gastrointestinal: soft, non-tender Musculoskeletal: no edema Dx/Plan (1) Osteomyelitis of toe Code(s): M86.9 - OSTEOMYELITIS, UNSPECIFIED Status: Acute (2) CAD (coronary artery disease) Code(s): I25.10 - ATHSCL HEART DISEASE OF [place] CORONARY ARTERY W/O ANG PCTRS Status: Chronic Qualifiers: Coronary Disease-Associated Artery/Lesion type: [place] artery [place] vs. 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 Resumed her home regimen of long-acting insulin. Still high. Will increase the SSI. (4) Hypertension Code(s): I10 - ESSENTIAL (PRIMARY) HYPERTENSION Status: Chronic Qualifiers: Hypertension type: essential hypertension Qualified Code(s): I10 - Essential (primary) hypertension Comment: Stable. Home Zestril. (5) Osteomyelitis Code(s): M86.9 - OSTEOMYELITIS, UNSPECIFIED Status: Acute Comment: S/P amputation. Some proximal progression of abscess with debridement of the head of the metatarsal bone. Continue with Abx. Cx growing Staph. Await sensitivities. - Plan likely transition to oral antibx soon -: will need outpt wound care -: cont accu/ss/insulin -: cont amlodipine, lisinopril * .
--- NOTE | 2017-11-02 16:12 | PRG ---
DATE OF SERVICE: 11/02/2017 SUBJECTIVE: Feeling better, less pain in the foot. No respiratory symptoms, abdominal pain or diarr hea. PHYSICAL EXAMINATION: VITAL SIGNS: Normal except for slight elevation in systolic blood pressure. LUNGS: Clear. CARDIOVASCULAR: S1, S2, regular rate. EXTREMITIES: Foot with dressing, it was not removed. The area of resection of the second toe was ev aluated at the base appears healthy. The erythema in the distal/dorsal forefoot appears to be recedi ng. Microbiology with Staphylococcus aureus with methicillin susceptible phenotype. The pathology s hows a viable soft tissue margins, osteomyelitis. ASSESSMENT AND DISCUSSION: Type 2 diabetes, ischemic cardiomyopathy, AICD in place, gangrene, second toe, cellulitis status post surgical resection, margin of amputation is okay and I would advise now transition to oral quinolone such as ciprofloxacin and rifampin and treat for 3-4 weeks.
[2017-11-02] MEDS: Cipro 250 MG TAB PO SCH (20:04)
[2017-11-02] MEDS: Atorvastatin Calcium 40 MG TAB PO SCH (20:04)
[2017-11-02] MEDS: Rifampin 300 MG CAP PO SCH (21:46)
[2017-11-03] MEDS: HumaLOG 300 UNITS/3 ML VIAL SC PRN ×2 (05:32→13:20)
[2017-11-03] MEDS: Cipro 250 MG TAB PO SCH ×2 (05:32→21:06)
[2017-11-03] MEDS: Lisinopril 20 MG TAB PO SCH ×2 (08:54→21:01)
[2017-11-03] MEDS: Amlodipine 5 MG TAB PO SCH (08:55)
[2017-11-03] MEDS: hydrALAZINE 25 MG TAB PO SCH ×3 (08:55→21:01)
[2017-11-03] MEDS: Furosemide 20 MG TAB PO SCH ×2 (08:55→21:02)
[2017-11-03] MEDS: metroNIDAZOLE 250 MG TAB PO SCH ×3 (08:55→21:02)
[2017-11-03] MEDS: Ezetimibe 10 MG TAB PO SCH (08:55)
[2017-11-03] MEDS: NPH, Human Insulin Isophane 300 UNIT/3 ML VIAL SC SCH ×2 (08:57→21:03)
[2017-11-03] MEDS: Heparin 5,000 UNITS/ML VIAL SC SCH ×2 (08:58→21:02)
[2017-11-03] MEDS: Rifampin 300 MG CAP PO SCH ×2 (09:11→22:15)
[2017-11-03] MEDS: Saccharomyces boulardii 250 MG CAP PO SCH (09:11)
--- NOTE | 2017-11-03 13:46 | PDOC.PN ---
- Subjective Encounter Start Date: 11/03/17 Encounter Start Time: 13:44 Subjective: no fever, chills - Objective Resuscitation Status: Resuscitation Status FULL:Full Resuscitation MAR Reviewed: Yes Vital Signs & Weight: Vital Signs (12 hours) Temp Pulse Resp BP Pulse Ox 11/03/17 08:00 97.6 F 77 16 93 L 11/03/17 07:23 97.6 F 77 16 135/81 93 L 11/03/17 03:33 94 L Weight Admit Weight 268 lb 8 oz Weight 268 lb 8 oz I&O: 11/02/17 11/03/17 11/04/17 06:59 06:59 06:59 Intake Total 1700 500 Balance 1700 500 Result Diagrams: 11/01/17 03:46 11/01/17 03:46 Additional Labs: Accuchecks 11/03/17 11/03/17 11/02/17 11:21 05:12 19:46 POC Glucose 280 H 250 H 194 H 11/02/17 16:44 POC Glucose 207 H Phys Exam - Physical Examination Neck: no JVD Respiratory: clear to auscultation bilateral Cardiovascular: RRR, no significant murmur Gastrointestinal: soft, positive bowel sounds Musculoskeletal: no edema L foot bandaged Dx/Plan (1) Osteomyelitis of toe Code(s): M86.9 - OSTEOMYELITIS, UNSPECIFIED Status: Acute (2) CAD (coronary artery disease) Code(s): I25.10 - ATHSCL HEART DISEASE OF [place] CORONARY ARTERY W/O ANG PCTRS Status: Chronic Qualifiers: Coronary Disease-Associated Artery/Lesion type: [place] artery [place] vs. 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 Resumed her home regimen of long-acting insulin. Still high. Will increase the SSI. (4) Hypertension Code(s): I10 - ESSENTIAL (PRIMARY) HYPERTENSION Status: Chronic Qualifiers: Hypertension type: essential hypertension Qualified Code(s): I10 - Essential (primary) hypertension Comment: Stable. Home Zestril. (5) Osteomyelitis Code(s): M86.9 - OSTEOMYELITIS, UNSPECIFIED Status: Acute Comment: S/P amputation. Some proximal progression of abscess with debridement of the head of the metatarsal bone. Continue with Abx. Cx growing Staph. Await sensitivities. - Plan deescalate antibx to po -: cont wound care -: cont accu/ss/ longacting insulin -: cont antihypertensives * .
[2017-11-03] MEDS: Atorvastatin Calcium 40 MG TAB PO SCH (21:01)
[2017-11-04] MEDS: HumaLOG 300 UNITS/3 ML VIAL SC PRN ×3 (05:17→17:38)
[2017-11-04] MEDS: Cipro 250 MG TAB PO SCH (05:18)
[2017-11-04] MEDS: Lisinopril 20 MG TAB PO SCH (07:51)
[2017-11-04] MEDS: hydrALAZINE 25 MG TAB PO SCH ×2 (07:51→14:58)
[2017-11-04] MEDS: Furosemide 20 MG TAB PO SCH (07:52)
[2017-11-04] MEDS: Heparin 5,000 UNITS/ML VIAL SC SCH (07:52)
[2017-11-04] MEDS: metroNIDAZOLE 250 MG TAB PO SCH ×2 (07:52→14:57)
[2017-11-04] MEDS: NPH, Human Insulin Isophane 300 UNIT/3 ML VIAL SC SCH (07:52)
[2017-11-04] MEDS: Ezetimibe 10 MG TAB PO SCH (07:52)
[2017-11-04] MEDS: Saccharomyces boulardii 250 MG CAP PO SCH (07:52)
[2017-11-04] MEDS: Amlodipine 5 MG TAB PO SCH (07:53)
[2017-11-04] MEDS: Rifampin 300 MG CAP PO SCH (09:17)
--- NOTE | 2017-11-04 10:33 | DIS ---
DATE OF ADMISSION: 10/29/2017 DATE OF DISCHARGE: 11/04/2017 PRIMARY CARE PROVIDER: Mikael Duvall M.D. DISCHARGE DISPOSITION: Home. FINAL DIAGNOSES: Osteomyelitis of the left second toe, methicillin susceptible Staph aureus infectio n in the surrounding tissues, type 2 diabetes without complications, chronic kidney disease stage 3, coronary artery disease, diabetes mellitus insulin-dependent, hypertension. DISCHARGE MEDICATIONS: Cipro 250 b.i.d. for 3 weeks, hydralazine 50 mg 3 times a day, Lasix 20 mg tw ice a day, NPH insulin 55 units subcutaneously twice a day, lisinopril 40 mg b.i.d., Zetia 5 mg a day , atorvastatin 80 mg a day, amlodipine 5 mg a day. ALLERGIES: CEPHALEXIN. DIET: Diabetic. PENDING AT THE TIME OF DISCHARGE: Nothing. CODE STATUS: FULL. HOSPITAL COURSE: Patient admitted to the hospital through [facility] Emergency Department with lef t second toe gangrene and osteomyelitis. She was started on IV antibiotics. Cultures were drawn. I nitial laboratory; creatinine 1.63, BUN 27, sodium 132, potassium 4.2, blood sugar 297. Liver functi on tests normal. C-reactive protein was high at 3.99, white count was elevated at 11.9, hemoglobin 1 1.4, platelet and 326,000. Dr. Ronald Johns saw the patient in consultation who recommended amputat ion. She was seen in consultation by Dr. Edgar Delgado on 10/31/2017. She had a left second toe am putation. Culture of the toe revealed methicillin sensitive Staph aureus. Patient was transitioned to p.o. Cipro per the recommendations of Dr. Whitaker, consulting Infectious Disease. Patient has been treated with wound care. She has done well. LABORATORY DATA: Followup laboratory; CBC; hemoglobin 9.9, white count 7.9, platelet count 290,000 o n 11/01/2017. Follow up creatinine 1.61 and BUN 28. On 10/30/2017, the patient is currently doing well. She is being discharged for outpatient wound car e on the aforementioned antibiotics. She needs to follow up with Dr. Duvall in 7 days. She will follow up with wound care by home health as an outpatient.
[2017-11-04] MEDS: HYDROcodone/Acetaminophen 5/325 mg Tablet PO PRN (14:57)
[2017-11-04 17:04] VITALS: BP 144/79; TEMP 97.5
--- NOTE | 2017-11-04 17:58 | PDOC.GSPN ---
Surgery Progress Note: Subj - Subjective Narrative: Ms. Johns's wound is clean and granulating and looks excellent. I believe that this will heal with conservative wound management. She is receiving Promogran dressings every other day and should continue this after discharge. She can follow up in my clinic in a couple weeks for wound check. From a surgical standpoint she is ready for discharge. Surgery Progress Note: Obj - Vital signs Vital signs: Vital Signs - Most Recent Temp Pulse Resp BP Pulse Ox 97.5 F L 75 20 144/79 H 95 11/04/17 16:00 11/04/17 16:00 11/04/17 16:00 11/04/17 16:00 11/04/17 16:00 Surgery Progress Note: Results - Labs Result Diagrams: 11/01/17 03:46 11/01/17 03:46 Lab results: Laboratory Results - last 24 hr 11/04/17 11/04/17 11:41 17:03 POC Glucose 201 H 188 H
--- NOTE | 2017-11-04 22:58 | ULT ---
EXTREMITY ARTERIAL EVALUATION Johns using DOPPLER WAVE-FORM ANALYSIS AND SEGMENTAL LIMB PRESSURES: Examination of the right leg reveals fairly well preserved femoral, popliteal and dorsalis pedis wave forms with an ankle-arm index of 1.5 and a toe-brachial index slightly diminished at 0.71. Left lower extremity demonstrates fairly well preserved Doppler waveform at the femoral level; howev er, it is abnormal at the popliteal, posterior tibial level and more so at the dorsalis pedis level. Ankle-arm index calculates to 0.61 and toe-brachial index is clearly diminished at 0.27. The study is most consistent with left-sided superficial femoral artery disease and probable tibioper ramirez disease bilaterally. Wound healing may be an issue in the left leg.
--- NOTE | 2017-11-05 11:14 | PQF ---
KALI BULLOCK, [facility]LY [facility] [id number] -[id number] CLINICAL DOCUMENTATION CLARIFICATION FORM: POST DISCHARGE DATE: 11/05/2017 ATTN: Dr. Altamirano Please exercise your independent, professional judgment in responding to the clarification form. Clinical indicators are provided on the bottom of this form for your review Please clarify patient's osteomyelitis, gangrene and cellulitis are due to: Please check appropriate box(s): Diabetes: Manifestation: [ ] Neurological (please specify) [ ] Gangrene [ ] Osteomyelitis [ ] Skin (please specify) [ ] Circulatory / PVD [ ] Other (please specify) [ ] Not due to diabetes [ ] Due to trauma [ ] Other (please specify) [ ] Other diagnosis (please specify) [ x] Unable to determine In addition, please specify: Present on Admission (POA): [ x] Yes [ ] No [ ] Unable to determine CLINICAL INDICATORS - SIGNS / SYMPTOMS / LABS Per H&P: Left second toe gangrene with osteomyelitis of the toe. Injury to foot 6 days previously. Patient clinically appears to be dry gangrene suspected for vascular problem. Patient does have various risk factors for underlying vascular insufficiency including diabetes, hypertensin, dyslipidemia and coronary artery disease. Per operative report: Patient with discoloration and swelling of the left second toe after minor injury. She has obvious gangrene of the distal left second toe and cortical changes consistent with osteomyelitis of the mid and distal phalanges. She also has swelling and erythema extending onto the dorsum fo the foot concerning for underlying infection, although there is no expressible drainage from the toe. Per progress notes: Osteomyelitis--Cultures growing MSSA. RISK FACTORS (per H&P) Diabetes. Hypertension Dyslipidemia. Coronary artery disease. Peripheral vascular disease. TREATMENTS: Per operative report: Left second toe ray amputation 10/30. Gangrene of the left second toe with diabetic foot infection. IV antibiotics. Infectious disease consult. (This form is maintained as a part of the permanent medical record) 2014 [employer]. All Rights Reserved Kadie [email or web address] [phone] MELINDA
--- NOTE | 2017-11-07 11:20 | EKG ---
Test Reason : Blood Pressure : / mmHG Vent. Rate : 068 BPM Atrial Rate : 068 BPM P-R Int : 174 ms QRS Dur : 096 ms QT Int : 424 ms P-R-T Axes : 104 -03 066 degrees QTc Int : 450 ms Normal sinus rhythm Inferior infarct , age undetermined Cannot rule out Anterior infarct , age undetermined Abnormal ECG Confirmed by MARLA BATES DO ([id number]), marketing editor GOPAL VILLEGAS ([id number]) on 11/07/2017 11:19:35 AM Referred By: Confirmed By:MARLA BATES DO
== END 2017-11-04 18:55 | disposition home health service (06) | DRG 617 ==
LOC: ERS 10:30 → T4-A 14:28
PROVIDERS: ADMIT Internal Medicine; ATTEND Internal Medicine
PROC: 0Y6S0Z1 Detachment at Left 2nd Toe, High, Open Approach (ICD-10-PCS; principal; 2017-10-30)
PROC: 0QBP0ZZ Excision of Left Metatarsal, Open Approach (ICD-10-PCS; 2017-10-30)
DX: E11.69 Type 2 diabetes mellitus with other specified complication (principal); M86.172 Other acute osteomyelitis, left ankle and foot; I96 Gangrene, not elsewhere classified; I50.22 Chronic systolic (congestive) heart failure; I13.0 Hypertensive heart and chronic kidney disease with heart failure and stage 1 through stage 4 chronic kidney disease, or unspecified chronic kidney disease; L03.116 Cellulitis of left lower limb; E11.52 Type 2 diabetes mellitus with diabetic peripheral angiopathy with gangrene; E11.22 Type 2 diabetes mellitus with diabetic chronic kidney disease; N18.3 Chronic kidney disease, stage 3 (moderate); I25.10 Atherosclerotic heart disease of native coronary artery without angina pectoris; I25.5 Ischemic cardiomyopathy; E78.5 Hyperlipidemia, unspecified; B95.61 Methicillin susceptible Staphylococcus aureus infection as the cause of diseases classified elsewhere; Z88.1 Allergy status to other antibiotic agents; Z79.4 Long term (current) use of insulin; Z79.899 Other long term (current) drug therapy; Z95.5 Presence of coronary angioplasty implant and graft; Z95.810 Presence of automatic (implantable) cardiac defibrillator
CPT/HCPCS: 36415; 36416; 80048; 80053; 80202; 81001; 85025; 85652; 86140; 87040; 87070; 87076; 87077; 87186; 87205; 88305; 88311; 93005; 93922; 96365; 96375; A4216; J0696; J0744; J1644; J1815; J1956; J2001; J2704; J3010; J3370; J7050

== ENCOUNTER 2018-05-15 15:58 | Inpatient (IN) | payer OTHER ==
[2018-05-15] MEDS ORDERED: Ondansetron ODT 4 MG TAB SL PRN (19:04)
[2018-05-15] MEDS ORDERED: Ondansetron PF 4 MG/2 ML Vial IVP PRN (19:04)
[2018-05-15] MEDS ORDERED: Morphine 4 MG/ML VIAL IV PRN (19:06)
[2018-05-15] MEDS: Piperacillin/Tazobactam 4.5 GM in Sodium Chloride 0.9% 100 ML IVPB SCH (20:09)
[2018-05-15 22:09] VITALS: BMI 37.0
[2018-05-16] MEDS: Piperacillin/Tazobactam 4.5 GM in Sodium Chloride 0.9% 100 ML IVPB SCH (02:24)
[2018-05-16] MEDS ORDERED: Morphine 4 MG/ML VIAL SLOW IVP PRN ×2 (07:29→07:43)
[2018-05-16] MEDS ORDERED: Ondansetron PF 4 MG/2 ML Vial IVP PRN (07:30)
[2018-05-16 08:21] LABS: ALT (SGPT) 22 U/L (8-55); AST (SGOT) 26 U/L (5-34); Albumin 3.3 g/dL (3.4-4.8); Alkaline Phosphatase 72 U/L (40-150); Anion Gap 11 mmol/L (10-20); BUN (Urea Nitrogen) 26 mg/dL (9.8-20.1); Bilirubin, Total 0.5 mg/dL (0.2-1.2); Calc. Creatinine Clearance 64 mL/min (70-130); Carbon Dioxide 26 mmol/L (23-31); Chloride 104 mmol/L (98-107); Estimated GFR-MDRD 30; Glucose 118 mg/dL (80-115); Potassium 3.9 mmol/L (3.5-5.1); Protein, Total 6.3 g/dL (6.0-8.3); Sodium 137 mmol/L (136-145)
[2018-05-16 08:26] LABS: Troponin I 0.038 ng/mL (< 0.028)
[2018-05-16] MEDS: Pantoprazole 40 MG VIAL IVP SCH (08:46)
[2018-05-16 08:52] LABS: Band 10 % (5-11); Hemoglobin 11.4 g/dL (12.0-16.0); Lymphocytes 35 % (21-51); MDiff Complete? YES; Mean Corpuscular HGB CONC 32.2 g/dL (32.0-36.0); Mean Corpuscular Hemoglobin 27.7 pg (27.0-31.0); Mean Corpuscular Volume 86.1 fL (78.0-98.0); Mean Platelet Volume 7.9 fL (7.4-10.4); Monocytes 8 % (0-10); Neutrophil 47 % (42-75); Platelet Count 147 thou/uL (130-400); RBC Distribution Width 14.2 % (11.5-14.5); Red Blood Cell (RBC) Count 4.11 mill/uL (4.20-5.40); White Blood Cell (WBC) Count 3.1 thou/uL (4.8-10.8)
[2018-05-16] MEDS ORDERED: Potassium Chloride 20 MEQ in Premix Bag 1 BAG IVPB SCH (11:30)
[2018-05-16] MEDS: Sodium Chloride 0.9% 1,000 ML IV SCH ×2 (11:32→23:40)
[2018-05-16] MEDS: Piperacillin/Tazobactam 3.375 GM in Sodium Chloride 0.9% 100 ML IVPB SCH ×3 (11:32→23:35)
--- NOTE | 2018-05-16 14:08 | CON ---
DATE OF CONSULTATION: HISTORY OF PRESENT ILLNESS: This is a 62-year-old white female, initially evaluated in June 2009. She had hypertension and diabetes and not taking any medications for 6 months due to inability to afford them. Three days prior to admission, she had 2-1/2 hours of chest burning, but did not seek medical attention. After that, she felt weak and tired. She then noted her heart beating very rapidly and went to the emergency room for further evaluation. She received 5 mg of morphine, nitroglycerin paste topically, aspirin, 4000 units of heparin followed by 1000 per hour, Plavix, and Lopressor. She was given Retavase 2 vials 30 minutes apart and then transferred. EKG in [place] revealed sinus tachycardia with 120 per minute with [address] segment elevation V3 through V6; 2 mm in 2, 3, and F. her troponin on admission was 17.5, CK-MB 5.7. She underwent emergent catheterization. The mid LAD was totally occluded. There was 70% first diagonal, 50% proximal circumflex, 90 % distal circumflex, and a 20% distal right coronary artery stenosis. She underwent placement of Express II 2.5 x 16 mm stent in the mid LAD. There also was a 50% distal LAD lesion. It was felt that her STEMI probably occurred 3 days prior to admission. There was difficulty in advancing the wire past the area of total occlusion, but a Mailman wire finally crossed. Peak troponin was 34.753. Echocardiogram revealed apicoseptal dyskinesis and mild global hypokinesis with ejection fraction of 35% to 40%, mitral annular calcification, mild tricuspid regurgitation, moderate mitral regurgitation. Her ejection fraction worsened to 25% and there was difficulty in getting an ICD placed due to funding. Eventually on January 29, 2012, she had placement of a single-chamber ICD. She has continued to be followed in the office since that time, although she is very noncompliant with followups at times. She went 19 months without being seen. She did have a distal 90% circumflex lesion and 70% diagonal lesion and it is felt that those areas should be intervened; however, with lack of funding, she did not wish to pursue this. She was last seen in January 2018 and was asymptomatic. Attempts have been made for 3 years trying to get a repeat echocardiogram performed, however, insurance would not allow this. Last echo was in April 2015, which revealed mild left ventricular dilatation, ejection fraction had improved at 45-50%, apical septal wall akinesis, defibrillator wire, mild left atrial enlargement, moderate mitral regurgitation , and mild tricuspid regurgitation. She has never had a stress test after her infarction in 2009 due to either lack of funding or her insurance not allowing it. She now is admitted with a feeling of abdominal bloating as well as nausea and vomiting for the last 3 or 4 days. She has been found to have cholelithiasis and consideration given for laparoscopic cholecystectomy. She denies any recent chest discomfort or shortness of breath. PAST MEDICAL HISTORY: Hypertension, diabetes, hyperlipidemia, and cholelithiasis. She also has history of noncompliance with medications as well as followups. PAST SURGICAL HISTORY: ICD placement and left 2nd toe amputation. SOCIAL HISTORY: She does not smoke or drink. FAMILY HISTORY: Negative for myocardial infarction or CABG. REVIEW OF SYSTEMS: A 12-point review of systems is unremarkable. PHYSICAL EXAMINATION: VITAL SIGNS: Blood pressure 160/83, pulse of 71. HEENT: PERRL. NECK: Supple. CHEST: Clear. CARDIAC: S1 and S2 normal without any S3, S4, or murmurs. ABDOMEN: Normal bowel sounds. I could not elicit any tenderness. The abdomen is obese. EXTREMITIES: Revealed no clubbing, cyanosis, or edema. NEUROLOGIC: Grossly intact. SKIN: Warm and dry. LABORATORY DATA: EKG revealed possible lateral and inferior infarction, not acute. Hemoglobin 11.4, hematocrit 35.3, white count 3100, and platelets 147,000. Sodium 137, potassium 3.9, chloride 104, carbon dioxide 26, BUN 26, creatinine 1.71. Troponin I 0.038. IMPRESSION: 1. Cholelithiasis with acute cholecystitis. 2. Coronary artery disease, status post myocardial infarction, probably 3 days prior to admission in June 2009. She received Retavase followed by bare-metal stent placement in the mid left anterior descending. She also had concerning disease with 70% first diagonal and 90% distal circumflex lesion that had never been re- evaluated due to either her not wishing to pursue because of lack of funding or her health care not allowing any further evaluation. 3. Ischemic cardiomyopathy with ejection fraction as low as 25% with placement of a single-chamber ICD. Over time, her ejection fraction has improved where it was 45-50% three years ago, but has not been reassessed since due to denying by her insurance. 4. Hypertension. 5. Hyperlipidemia. 6. Diabetes. 7. Obesity. PLAN: From a Cardiology standpoint, Ms. Johns has several ongoing issues. Her left ventricular function has not been able to be reassessed for 3 years and she still has significant untreated disease. If this is not an emergent need for cholecystectomy at this time, these issues should be re-evaluated with an echocardiogram and Lexiscan Cardiolite testing. These will be ordered and further recommendations based on the results will be forthcoming. Job ID: [id number] MELINDA
[2018-05-16] MEDS: hydrALAZINE 25 MG TAB PO SCH ×2 (15:29→21:06)
--- NOTE | 2018-05-16 16:43 | HP ---
REASON FOR CONSULT: Cholelithiasis. CHIEF COMPLAINT: Intractable nausea and vomiting. HISTORY: Ms. Johns is a 62-year-old woman with multiple medical problems for whom I have performed a toe amputation in the past. She states that she has had problems with abdominal bloating and discomfort, nausea and vomiting since Thursday of last week. She has not really been able to keep anything down and has been taking very little by mouth. By yesterday, she was feeling so weak that she decided to come into her local emergency room. She underwent evaluation with CT and ultrasound, and was found to have gallstones with a stone impacted in the neck of the gallbladder, but no other intraabdominal abnormalities. She was transferred to [place] for further evaluation and admitted to the hospital. The patient denies any abdominal pain or worsening of her symptoms with eating, but has not really been eating since the onset of her symptoms. She denies any abdominal tenderness, but states that she just feels uncomfortable and bloated all the time since her admission. She has been having bowel movements and passing gas and has not had any nausea or vomiting. She also denies fevers, chills, jaundice, or icterus. PAST MEDICAL HISTORY: Hypertension, coronary artery disease, status post stenting many years ago. She follows up with Dr. Sheridan for her heart disease and is due to see him again in August. She also has a history of diabetes, peripheral vascular disease, heart failure with AICD placement, hypertension, and hyperlipidemia. PAST SURGICAL HISTORY: Coronary artery stenting and AICD placement and toe amputation for diabetic foot infection. OUTPATIENT MEDICATIONS: Include; 1. Amlodipine. 2. Atorvastatin. 3. Ezetimibe. 4. Lasix. 5. Hydralazine reports adverse drug reaction to Keflex. FAMILY HISTORY: Noncontributory. SOCIAL HISTORY: She does not smoke or drink to excess or use illicit drugs. PHYSICAL EXAMINATION: GENERAL: Reveals a pleasant, obese woman, in no acute distress. She is not flushed or toxic in appearance. She is not jaundiced or icteric. HEENT: Unremarkable. NECK: Supple without lymphadenopathy or thyroid nodules. HEART: Regular in its rate and rhythm without murmurs, rubs, or gallops. LUNGS: Clear to auscultation bilaterally. She has not exhibit any pain with deep inspiration. ABDOMEN: Soft, nondistended, completely nontender to palpation. She does have a large incarcerated umbilical hernia, which contains fat only on her recent CT. This is nontender but unable to be reduced. EXTREMITIES: Reasonably well perfused. I cannot really appreciate pedal pulses, but her amputation site is well healed and capillary refill appears normal. NEUROLOGIC: No focal deficits. PSYCHIATRIC: Alert, oriented, and appropriate. LABORATORY DATA: White count is normal and LFTs are normal. DIAGNOSTIC STUDIES: CT and ultrasound images from [facility] are examined with our radiologist and I agree with the written report. She appears to have a stone impacted in the neck of her gallbladder with no other intraabdominal abnormalities. No evidence of small-bowel obstruction or gastric outlet obstruction are seen. ASSESSMENT: Likely obstructed gallbladder causing intractable nausea and vomiting. The patient does not appear to have acute cholecystitis and she is nontender and afebrile, but there is really no other explanation for her symptoms seen on her imaging and I do feel that biliary colic is the most likely explanation. I have recommended a laparoscopic cholecystectomy for symptomatic relief. However, I am concerned about the patient's cardiac status. She states that she is able to climb a flight of stairs slowly, but she can only walk 30 to 50 feet on a flat surface because of pain in her hip. She denies any exertional angina or dyspnea on exertion, but her level of activity at baseline is really too low to risk stratify her, so I have asked her church organist Dr. Sheridan to see her. He evaluated her and feels that she requires echocardiogram and stress testing, so we will await the outcome of this prior to scheduling surgery. I will keep her on antibiotics for now. Job ID: [id number]
[2018-05-16] MEDS: Atorvastatin Calcium 40 MG TAB PO SCH (21:05)
[2018-05-16] MEDS: Furosemide 20 MG TAB PO SCH (21:06)
[2018-05-17] MEDS: Sodium Chloride 0.9% 1,000 ML IV SCH ×3 (05:13→20:23)
[2018-05-17] MEDS: Piperacillin/Tazobactam 3.375 GM in Sodium Chloride 0.9% 100 ML IVPB SCH ×4 (05:13→23:44)
[2018-05-17] MEDS ORDERED: Amlodipine 10 MG TAB PO SCH (09:00)
[2018-05-17] MEDS ORDERED: Regadenoson 0.4 MG/5 ML SYRINGE ONE (10:22)
[2018-05-17] MEDS: Pantoprazole 40 MG VIAL IVP SCH (11:38)
[2018-05-17] MEDS: hydrALAZINE 25 MG TAB PO SCH ×3 (11:43→20:22)
[2018-05-17] MEDS: Furosemide 20 MG TAB PO SCH ×2 (12:28→20:22)
[2018-05-17] MEDS: Amlodipine 5 MG TAB PO SCH (12:29)
[2018-05-17] MEDS: Ezetimibe 10 MG TAB PO SCH (12:29)
--- NOTE | 2018-05-17 13:34 | NM ---
NUCLEAR MEDICINE CARDIAC STRESS TEST WITH EJECTION FRACTION: HISTORY: Coronary artery disease. Peripheral vascular disease. Hypertension, diabetes, and dyslipidemia. COMPARISON: None. TECHNIQUE: Stress and rest was performed after the intravenous administration of 27.6 mCi technetium-99m sestami bi intravenously. FINDINGS: There is a large area of defect at the left ventricular apex and inferior wall. There is dyskinesia o f the left ventricular apex. IMPRESSION: 1. Large volume scar inferior wall and at the apex, without significant periinfarct ischemia. 2. Calculated ejection fraction is 58% with dyskinesis of the left ventricular apex. POS: DORA
[2018-05-17] MEDS: Atorvastatin Calcium 40 MG TAB PO SCH (20:22)
--- NOTE | 2018-05-17 21:03 | PDOC.GSPN ---
Surgery Progress Note: Subj - Subjective Narrative: Patient had nausea during her stress test but otherwise has been feeling okay. No abdominal pain or nausea currently. According to Dr. Sheridan the stress test did not show any reversible ischemia and we should be able to proceed with surgery. Her abdominal exam is benign and she does not have any tenderness. Vital signs have been okay. We will plan on laparoscopic cholecystectomy tomorrow. Surgery Progress Note: Obj - Vital signs Vital signs: Vital Signs - Most Recent Temp Pulse Resp BP Pulse Ox 98.1 F 70 18 144/87 H 97 05/17/18 15:00 05/17/18 20:22 05/17/18 15:00 05/17/18 20:22 05/17/18 20:29 Surgery Progress Note: Results - Labs Result Diagrams: 05/16/18 07:33 05/16/18 07:33
[2018-05-18] MEDS: Piperacillin/Tazobactam 3.375 GM in Sodium Chloride 0.9% 100 ML IVPB SCH ×4 (05:14→23:31)
[2018-05-18 07:35] LABS: #Eosinphils 0.1 thou/uL (0.0-0.7); #Lymphocytes 1.5 thou/uL (1.20-3.40); #Monocytes 0.5 thou/uL (0.11-0.59); #Neutrophils 1.6 thou/uL (1.40-6.50); %Basophils 0.7 % (0.0-1.0); %Eosinophils 1.7 % (0.0-10.0); %Lymphocytes 40.4 % (21.0-51.0); %Monocytes 14.3 % (0.0-10.0); %Neutrophils 42.9 % (42.0-75.0); Hemoglobin 11.2 g/dL (12.0-16.0); Mean Corpuscular HGB CONC 33.1 g/dL (32.0-36.0); Mean Corpuscular Hemoglobin 28.2 pg (27.0-31.0); Mean Corpuscular Volume 85.1 fL (78.0-98.0); Mean Platelet Volume 8.3 fL (7.4-10.4); Platelet Count 131 thou/uL (130-400); RBC Distribution Width 14.2 % (11.5-14.5); Red Blood Cell (RBC) Count 3.97 mill/uL (4.20-5.40); White Blood Cell (WBC) Count 3.7 thou/uL (4.8-10.8)
[2018-05-18 08:04] LABS: ALT (SGPT) 20 U/L (8-55); AST (SGOT) 23 U/L (5-34); Albumin 3.2 g/dL (3.4-4.8); Alkaline Phosphatase 68 U/L (40-150); Anion Gap 11 mmol/L (10-20); BUN (Urea Nitrogen) 13 mg/dL (9.8-20.1); Bilirubin, Total 0.5 mg/dL (0.2-1.2); Calc. Creatinine Clearance 85 mL/min (70-130); Calcium 7.9 mg/dL (7.8-10.44); Carbon Dioxide 23 mmol/L (23-31); Chloride 108 mmol/L (98-107); Estimated GFR-MDRD 42; Globulin 3.1 g/dL (2.4-3.5); Glucose 268 mg/dL (80-115); Potassium 3.3 mmol/L (3.5-5.1); Protein, Total 6.3 g/dL (6.0-8.3); Sodium 139 mmol/L (136-145)
[2018-05-18] MEDS ORDERED: Carvedilol 3.125 MG TAB PO SCH (09:45)
[2018-05-18] MEDS: Pantoprazole 40 MG VIAL IVP SCH (09:47)
[2018-05-18] MEDS: hydrALAZINE 25 MG TAB PO SCH ×3 (09:48→19:59)
[2018-05-18] MEDS: Ezetimibe 10 MG TAB PO SCH (09:49)
[2018-05-18] MEDS: Amlodipine 5 MG TAB PO SCH ×2 (09:49→18:43)
[2018-05-18] MEDS: Furosemide 20 MG TAB PO SCH ×2 (09:49→20:00)
[2018-05-18] MEDS ORDERED: Glycopyrrolate 0.2 MG/ML 5 ML SYRINGE ONE (13:08)
[2018-05-18] MEDS ORDERED: ePHEDrine 50 MG/ML VIAL ONE (13:08)
[2018-05-18] MEDS ORDERED: Succinylcholine Chloride 20 MG/ML 10 ml SYRINGE FS ONE (13:08)
[2018-05-18] MEDS ORDERED: Metoclopramide HCl 10 MG/2 ML VIAL ONE (13:08)
[2018-05-18] MEDS ORDERED: Lidocaine 1% PF 5 ML VIAL ONE (13:08)
[2018-05-18] MEDS ORDERED: PROPOFOL 200 MG/20 ML VIAL ONE (13:08)
[2018-05-18] MEDS ORDERED: Ondansetron PF 4 MG/2 ML Vial ONE (13:08)
[2018-05-18] MEDS ORDERED: Rocuronium Bromide 10 MG/ML (10ML VIAL) ONE (13:08)
[2018-05-18] MEDS: Sodium Chloride 0.9% 1,000 ML IV SCH (13:47)
[2018-05-18] MEDS ORDERED: Bupivacaine/Epinephrine 0.25% 30 ML VIAL ONE (14:38)
[2018-05-18] MEDS ORDERED: Famotidine/PF 20 mg/2ml Vial ONE (14:47)
[2018-05-18] MEDS ORDERED: Fentanyl 100 MCG/2 ML VIAL ONE (14:47)
[2018-05-18] MEDS ORDERED: Promethazine HCl 25 MG/ML VIAL SLOW IVP PRN (17:11)
[2018-05-18] MEDS ORDERED: Promethazine HCl 25 MG/ML VIAL IM PRN (17:11)
[2018-05-18] MEDS ORDERED: HYDROmorphone 2 MG/ML VIAL SLOW IVP PRN (17:11)
[2018-05-18] MEDS ORDERED: Meperidine HCl/PF 25 MG/ML VIAL SLOW IVP PRN (17:11)
[2018-05-18] MEDS ORDERED: Morphine 4 MG/ML VIAL SLOW IVP PRN ×2 (17:34)
[2018-05-18] MEDS ORDERED: HYDROcodone/Acetaminophen 5/325 mg Tablet PO PRN ×2 (17:35→17:36)
[2018-05-18] MEDS ORDERED: Ondansetron PF 4 MG/2 ML Vial IVP PRN (17:35)
[2018-05-18] MEDS: Carvedilol 3.125 MG TAB PO SCH (17:47)
--- NOTE | 2018-05-18 19:46 | PDOC.OP ---
Operative Note - Operative Note Operative Note: PROCEDURE: Laparoscopic cholecystectomy and open umbilical hernia repair SURGEON: Edgar Delgado M.D. DATE OF PROCEDURE: 05/18/2018 PREOPERATIVE DIAGNOSIS: Cholelithiasis and cholecystitis, incarcerated umbilical hernia POSTOPERATIVE DIAGNOSIS: Cholelithiasis and cholecystitis, incarcerated umbilical hernia HISTORY: Patient with intractable nausea likely due to a stone impacted in the neck of her gallbladder. She has been cleared by cardiology and is proceeding with laparoscopic cholecystectomy. She has a long-standing incarcerated umbilical hernia containing omentum only which will be repaired under the same anesthesia with sutures only. FINDINGS: Incarcerated omentum and large umbilical hernia, right upper quadrant omental adhesions, white walled gallbladder with stone impacted in neck. PROCEDURE IN DETAIL: After informed consent was obtained and appropriate preoperative antibiotics were administered, the patient was taken to the operating room and placed in the supine position and general endotracheal anesthesia was administered. The stomach was decompressed with an OG tube and the abdomen was prepped and draped in standard sterile fashion. Local anesthesia was infused to the skin and subcutaneous tissues at the umbilical level. A transverse elliptical skin incision incorporating some of the redundant skin was made. The hernia sac was dissected free circumferentially down to the level of the fascia. The sac was entered and chronically thickened incarcerated omentum encountered. This was unable to be reduced into the abdominal cavity so the omentum was ligated and divided at the base of the hernia and the omental stump was able to be reduced through the fascial defect which was about 1.5 cm. The hernia sac was excised and the sac and omentum discarded. The 12 mm trocar was placed through the fascial defect and the skin closed around the trocar with skin clamps. Carbon dioxide gas was insufflated through the trocar. Opening pressure was less than 5 and carbon dioxide gas easily insufflated to an intra-abdominal pressure of 15, which the patient tolerated well. Local anesthesia was infused to the skin and subcutaneous tissues at the epigastric, right upper quadrant, and right lateral abdominal sites and trocars were placed under direct vision of the laparoscope. There were some omental adhesions to the anterior abdominal wall in the right upper quadrant which were taken down through the avascular plane under direct laparoscopic vision. The fundus of the gallbladder was grasped and retracted superiorly. The infundibulum was grasped and retracted laterally. The serosa was stripped inferiorly at the level of the neck of the gallbladder exposing the cystic duct and artery which were traced clearly to their insertion in the gallbladder. Critical view of safety was obtained and the cystic duct and artery were clipped and divided between clips. The gallbladder was then dissected free of the gallbladder bed using hook electrocautery. Prior to complete removal of the gallbladder from the gallbladder bed, the area of the cystic duct and artery stumps was examined. The clips were in good position completely across these structures and there was no bleeding and no leakage of bile. The gallbladder was then placed into an EndoCatch bag and drawn out through the umbilical incision. The umbilical trocar was replaced and the operative site easily irrigated to clear. There was no significant bleeding or spillage of bile. The epigastric, right upper quadrant and right lateral abdominal trocars were removed and hemostasis verified. Carbon dioxide gas was allowed to desufflate through the umbilical trocar which was then removed. The umbilical fascia was interrupted with 2 [id number] 0 Vicryl sutures on a UR 6 needle with excellent technical result. The wound was irrigated and hemostasis verified. The skin was tacked down to the fascia and the subcutaneous tissues reapproximated with 3-0 Monocryl suture. The skin incisions were closed with 4-0 subcuticular Monocryl sutures and Dermabond dressings were placed. Once the Dermabond dressing was try a pressure dressing was placed over the umbilical incision. The patient was extubated and taken to the recovery room in good condition. There were no complications. ESTIMATED BLOOD LOSS: Minimal. SPECIMEN : Gallbladder and contents.
[2018-05-18] MEDS: Atorvastatin Calcium 40 MG TAB PO SCH (20:00)
[2018-05-18] MEDS ORDERED: hydrALAZINE 20 MG/ML VIAL SLOW IVP PRN (21:30)
[2018-05-19] MEDS: Sodium Chloride 0.9% 1,000 ML IV SCH ×2 (02:41→08:48)
[2018-05-19] MEDS: Piperacillin/Tazobactam 3.375 GM in Sodium Chloride 0.9% 100 ML IVPB SCH ×4 (05:24→23:20)
[2018-05-19] MEDS: hydrALAZINE 25 MG TAB PO SCH ×3 (08:43→20:27)
[2018-05-19] MEDS: Carvedilol 3.125 MG TAB PO SCH ×2 (08:43→17:03)
[2018-05-19] MEDS: Amlodipine 5 MG TAB PO SCH (08:44)
[2018-05-19] MEDS: Ezetimibe 10 MG TAB PO SCH (08:44)
[2018-05-19] MEDS: Furosemide 20 MG TAB PO SCH ×2 (08:44→20:28)
[2018-05-19] MEDS: Pantoprazole 40 MG VIAL IVP SCH (08:45)
[2018-05-19 09:33] LABS: #Eosinphils 0.1 thou/uL (0.0-0.7); #Lymphocytes 1.2 thou/uL (1.20-3.40); #Monocytes 0.4 thou/uL (0.11-0.59); #Neutrophils 3.6 thou/uL (1.40-6.50); %Eosinophils 1.3 % (0.0-10.0); %Lymphocytes 22.9 % (21.0-51.0); %Monocytes 7.9 % (0.0-10.0); Hemoglobin 11.3 g/dL (12.0-16.0); Mean Corpuscular HGB CONC 31.5 g/dL (32.0-36.0); Mean Corpuscular Hemoglobin 27.1 pg (27.0-31.0); Mean Corpuscular Volume 85.8 fL (78.0-98.0); Mean Platelet Volume 7.9 fL (7.4-10.4); Platelet Count 157 thou/uL (130-400); RBC Distribution Width 14.2 % (11.5-14.5); Red Blood Cell (RBC) Count 4.16 mill/uL (4.20-5.40); White Blood Cell (WBC) Count 5.3 thou/uL (4.8-10.8)
[2018-05-19 10:00] LABS: ALT (SGPT) 27 U/L (8-55); AST (SGOT) 29 U/L (5-34); Albumin 3.2 g/dL (3.4-4.8); Alkaline Phosphatase 67 U/L (40-150); Anion Gap 11 mmol/L (10-20); BUN (Urea Nitrogen) 11 mg/dL (9.8-20.1); Bilirubin, Total 0.7 mg/dL (0.2-1.2); Calc. Creatinine Clearance 81 mL/min (70-130); Calcium 8.3 mg/dL (7.8-10.44); Carbon Dioxide 27 mmol/L (23-31); Chloride 106 mmol/L (98-107); Estimated GFR-MDRD 40; Globulin 3.2 g/dL (2.4-3.5); Glucose 273 mg/dL (80-115); Potassium 3.6 mmol/L (3.5-5.1); Protein, Total 6.4 g/dL (6.0-8.3); Sodium 140 mmol/L (136-145)
--- NOTE | 2018-05-19 12:07 | PDOC.GSPN ---
Surgery Progress Note: Subj - Subjective Narrative: Patient feels better today. She has minimal royal-incisional pain and states that her nausea has completely resolved. She has been able to eat without any problems. Her incisions looked good. The dressing on her umbilicus is clean. Labs look good with normal white count and LFTs. BUN and creatinine have improved since admission. Assessment/plan: Doing well overall status post laparoscopic cholecystectomy. The patient was quite debilitated prior to her admission and could barely walk to the bathroom due to weakness. We are going to see how she does with ambulation today. Physical therapy will be consultative she has ongoing problems. Her oral intake is better and expect that her strength and activity level will also improve, and that she will likely be able to be discharged home tomorrow. Surgery Progress Note: Obj - Vital signs Vital signs: Vital Signs - Most Recent Temp Pulse Resp BP Pulse Ox 98.0 F 64 16 147/82 H 94 L 05/19/18 09:00 05/19/18 09:00 05/19/18 09:00 05/19/18 09:00 05/19/18 09:00 Surgery Progress Note: Results - Labs Result Diagrams: 05/19/18 09:21 05/19/18 09:21 Lab results: Laboratory Results - last 24 hr 05/19/18 05/19/18 09:21 09:21 WBC 5.3 RBC 4.16 L Hgb 11.3 L Hct 35.7 L MCV 85.8 MCH 27.1 MCHC 31.5 L RDW 14.2 Plt Count 157 MPV 7.9 Neutrophils % 68.0 Lymphocytes % 22.9 Monocytes % 7.9 Eosinophils % 1.3 Basophils % 0.0 Neutrophils # 3.6 Lymphocytes # 1.2 Monocytes # 0.4 Eosinophils # 0.1 Basophils # 0.0 Sodium 140 Potassium 3.6 Chloride 106 Carbon Dioxide 27 Anion Gap 11 BUN 11 Creatinine 1.35 H Estimated GFR (MDRD) 40 Glucose 273 H Calcium 8.3 Total Bilirubin 0.7 AST 29 ALT 27 Alkaline Phosphatase 67 Serum Total Protein 6.4 Albumin 3.2 L Globulin 3.2 Albumin/Globulin Ratio 1.0 L
[2018-05-19] MEDS: Atorvastatin Calcium 40 MG TAB PO SCH (20:29)
[2018-05-20] MEDS: Piperacillin/Tazobactam 3.375 GM in Sodium Chloride 0.9% 100 ML IVPB SCH ×2 (05:27→13:17)
[2018-05-20] MEDS: Carvedilol 3.125 MG TAB PO SCH (08:29)
[2018-05-20] MEDS: Amlodipine 5 MG TAB PO SCH (08:29)
[2018-05-20] MEDS: Ezetimibe 10 MG TAB PO SCH (08:29)
[2018-05-20] MEDS: Pantoprazole 40 MG VIAL IVP SCH (08:30)
[2018-05-20] MEDS: Furosemide 20 MG TAB PO SCH (08:30)
[2018-05-20] MEDS: hydrALAZINE 25 MG TAB PO SCH (08:30)
[2018-05-20 15:37] VITALS: BP 145/79; TEMP 97.2
--- NOTE | 2018-05-20 22:21 | DIS ---
DATE OF ADMISSION: 05/15/2018 DATE OF DISCHARGE: 05/20/2018 FINAL DIAGNOSES: 1. Coronary artery disease without reversible ischemia. 2. Chronic cholecystitis. 3. Hypertension. 4. Diabetes. 5. Hyperlipidemia. 6. Chronic incarcerated umbilical hernia. HISTORY: Ms. Johns is a 62-year-old woman who was admitted to the hospital with intractable nausea and vomiting, felt to be due to a stone impacted in the neck of her gallbladder. She was admitted and managed symptomatically and placed on empiric antibiotics with improvement in her symptoms. She has a significant cardiac history, so Cardiology was consulted and echocardiogram and stress test performed. This did not show any reversible ischemia. She proceeded with laparoscopic cholecystectomy and primary repair of umbilical hernia without incident. Postoperatively, she recovered well and did not require any pain medication, but her mobility was still quite poor due to almost a week of no oral intake prior to her admission to the hospital. Her energy and activity level did improve over the following day, and by postoperative day #2, she was ready for discharge home and had been cleared by Physical Therapy. She is to continue on her home medications and can take Tylenol as needed for pain. She has not required any narcotic pain medication. She is to [facility] 2 weeks' time and she is to be on a low-fat diet after discharge. She is to avoid lifting anything over 20 pounds for the next couple of weeks and to wear an abdominal binder when she is up. Job ID: [id number]
--- NOTE | 2018-05-22 22:15 | EKG ---
Test Reason : Blood Pressure : / mmHG Vent. Rate : 074 BPM Atrial Rate : 074 BPM P-R Int : 162 ms QRS Dur : 096 ms QT Int : 408 ms P-R-T Axes : 041 000 076 degrees QTc Int : 452 ms Normal sinus rhythm Possible Lateral infarct , age undetermined Inferior infarct , age undetermined Abnormal ECG Confirmed by SKYLA GRIMM, DIANELYS ([id number]), loan expeditor GOPAL VILLEGAS ([id number]) on 05/22/2018 10:15:12 PM Referred By: Confirmed By:DIANELYS CRUM MD
--- NOTE | 2018-05-24 11:46 | STRESS ---
Acquisition Time: 2018-05-17 10:08:46 Total Exercise Time: 00:01:00 Test Indications: ELEVATED TROPONIN Medications: Protocol: LEXISCAN Max HR: 098 BPM 61% of Pred: 159 BPM Max BP: 146/080 mmHG Max Work Load: 1.0 METS RESTING ECG: SINUS BRADYCARDIA AT 59 BPM SYMPTOMS: DYPNEA AND NAUSEA NORMAL BP RESPONSE ECTOPY: NONE ECG STRESS: NO SIGNIFICANT CHANGES INTERPRETATION: NEGATIVE ECG/ AWAIT NUCLEAR IMAGES FOR DEFINITIVE DIAGNOSIS Confirmed by NICOLAS LOPEZ ([id number]) on 05/24/2018 11:45:56 AM Referred By: MD Eren GALARZA Confirmed By:NICOLAS LOPEZ
== END 2018-05-20 15:41 | disposition home or self-care (01) | DRG 418 ==
LOC: ERS 15:58 → SURG B 17:04
PROVIDERS: ADMIT Surgery; ATTEND Surgery
PROC: 0FT44ZZ Resection of Gallbladder, Percutaneous Endoscopic Approach (ICD-10-PCS; principal; 2018-05-18)
PROC: 0WQF0ZZ Repair Abdominal Wall, Open Approach (ICD-10-PCS; 2018-05-18)
PROC: 0DBU0ZZ Excision of Omentum, Open Approach (ICD-10-PCS; 2018-05-18)
DX: K80.12 Calculus of gallbladder with acute and chronic cholecystitis without obstruction (principal); K42.0 Umbilical hernia with obstruction, without gangrene; I25.10 Atherosclerotic heart disease of native coronary artery without angina pectoris; E11.51 Type 2 diabetes mellitus with diabetic peripheral angiopathy without gangrene; I11.0 Hypertensive heart disease with heart failure; I50.9 Heart failure, unspecified; E78.5 Hyperlipidemia, unspecified; I25.5 Ischemic cardiomyopathy; E66.9 Obesity, unspecified; Z68.37 Body mass index [BMI] 37.0-37.9, adult; I25.2 Old myocardial infarction; Z89.429 Acquired absence of other toe(s), unspecified side; Z95.810 Presence of automatic (implantable) cardiac defibrillator; Z95.5 Presence of coronary angioplasty implant and graft
CPT/HCPCS: 36415; 36416; 78452; 80053; 84484; 85025; 88304; 93005; 93017; 93306; A9500; C9113; J0131; J2001; J2405; J2543; J2704; J2765; J2785; J3010; J3480; J3490; J7050; S0028

== ENCOUNTER 2021-09-24 10:55 | Outpatient (CLI) | payer OTHER ==
[2021-09-24 11:32] LABS: #Eosinphils 0.3 10x3/uL (0.0-0.5); #Monocytes 0.7 10x3/uL (0.0-1.1); #Neutrophils 6.5 10x3/uL (1.5-8.4); %Basophils 0.4 % (0.0-2.0); %Eosinophils 3.4 % (0.0-6.0); %Lymphocytes 20.4 % (18.0-47.0); %Monocytes 7.3 % (0.0-10.0); %Neutrophils 68.2 % (40.0-75.0); Hemoglobin 13.5 g/dL (12.0-15.5); Mean Corpuscular HGB CONC 31.9 g/dL (32.0-36.0); Mean Corpuscular Hemoglobin 27.4 pg (27.0-33.0); Mean Platelet Volume 9.5 fl (7.4-10.4); Platelet Count 288 10x3/uL (150-450); RBC Distribution Width 16.9 % (11.5-14.5); Red Blood Cell (RBC) Count 4.92 10x6/uL (3.90-5.03); White Blood Cell (WBC) Count 9.5 10x3/uL (3.5-10.5)
== END 2021-09-24 10:56 | disposition home or self-care (01) ==
LOC: LABBT 10:55
PROVIDERS: ATTEND Internal Medicine
DX: Z01.812 Encounter for preprocedural laboratory examination (principal); Z20.822 Contact with and (suspected) exposure to COVID-19
CPT/HCPCS: 85025; 87811